=== PATIENT | male | born 1935 | race Caucasian/White ===

== ENCOUNTER 2017-06-03 12:00 | Emergency (ER) | payer MEDICARE, BC ==
[~2017-06-03] VITALS: Ht 177.8 cm; Wt 99.8 kg
[~2017-06-03 12:00] MED LIST: BACTRIM DS TAB1 EACH PO; CRESTOR40 MG; DICLOFENAC SOD100 MG; HYDROCHLOROTHIA25 MG; HYDROCODON-ACE1 EA10; JANUVIA100 MG; KEFLEX500 MG PO; LISINOPRIL40 MG; NORCO 5-325 TA1 EACH PO; TRAMADOL HCL50 MG; XARELTO20 MG
[2017-06-03] MEDS ORDERED: AMLODIPINE BESYL5 MG PO (12:15)
[2017-06-03] MEDS ORDERED: METOPROLOL SUCC50 MG PO (12:15)
[2017-06-03] MEDS ORDERED: BUPROPION XL300 MG PO (12:19)
[2017-06-03] MEDS ORDERED: GABAPENTIN300 MG PO (12:19)
[2017-06-03] MEDS ORDERED: JANUVIA50 MG PO (12:19)
[2017-06-03] MEDS ORDERED: RANITIDINE HCL150 MG PO (12:20)
--- OUTSIDE RECORDS SUMMARY | 2017-06-03 12:22 | XMS ---
Demographics + + + | Address | [address] | | | [place] [address] | + + + | Preferred Language | Unknown | + + + | Marital Status | Unknown | + + + | Nondenominational Affiliation | Unknown | + + + | Race | Unknown | + + + | Ethnic Group | Unknown | + + + Author + + + | Author | [facility] | + + + | Organization | [facility] | + + + | Address | [address] | | | [place] [address] | + + + | Phone | | + + + Care Team Providers + + + + | Care Baseball Inspector And Repairer Name | Role | Phone | + + + + Unavailable | Unavailable | + + + + PROBLEMS + + + + + + + + | Type | Condition | ICD9-CM | [id number] | Onset | Condition | SNOMED | | | | Code | Code | Dates | Status | Code | + + + + + + + + | Problem | Bilateral | H61.23 | | | Active | [id number] | | | impacted | | | | | | | | cerumen | | | | | | + + + + + + + + | Problem | Hypertensi | I11.9 | | | Active | 26398702 | | | ve | | | | | | | | arterioscl | | | | | | | | erotic | | | | | | | | cardiovasc | | | | | | | | ular | | | | | | | | disease | | | | | | + + + + + + + + | Problem | Skin | D49.2 | | | Active | | | | neoplasm | | | | | | + + + + + + + + | Problem | Dysthymia | F34.1 | | | Active | 56220064 | + + + + + + + + | 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 | | Active | 412682547 | | | hyperlipid | | | | | | | | emia | | | | | | + + + + + + + + | Problem | Gastroesop | K21.9 | | | Active | 582756328 | | | hageal | | | | | | | | reflux | | | | | | | | disease | | | | | | | | without | | | | | | | | esophagiti | | | | | | | | s | | | | | | + + + + + + + + | Problem | Osteoarthr | | M19.90 | | Active | 011509202 | | | itis | | | | | | + + + + + + + + | Problem | Paroxysmal | | I48.0 | | Active | 678015118 | | | atrial | | | | | | | | fibrillati | | | | | | | | on | | | | | | + + + + + + + + | Problem | TANK | G47.33 | | | Active | 51618305 | | | (obstructi | | | | | | | | ve sleep | | | | | | | | apnea) | | | | | | + + + + + + + + | Assessment | Stage 3 | N18.3 | | 05 August, | Active | 640365288 | | | chronic | | | 2017 | | | | | kidney | | | | | | | | disease | | | | | | + + + + + + + + | Assessment | Dysthymia | F34.1 | | 05 August, | Active | 53982491 | | | | | | 2016 | | | + + + + + + + + | Assessment | Irritation | H93.8X3 | | 18 July, | Active | | | | of ear, | | | 2017 | | | | | bilateral | | | | | | + + + + + + + + | 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 | | Active | 67634533 | | | rhinitis | | | | | | + + + + + + + + | Problem | DM | | E11.9 | | Active | 83786936 | | | (diabetes | | | | | | | | mellitus) | | | | | | + + + + + + + + | Problem | Chronic | | Z79.01 | | Active | 199419813 | | | anticoagul | | | | | | | | ation | | | | | | + + + + + + + + | Problem | Hypertensi | | I10 | | Active | 27149155 | | | on | | | | | | + + + + + + + + | Problem | Paroxysmal | I48.0 | | | Active | 35160745 | | | a-fib | | | | | | + + + + + + + + | Problem | Hyperchole | | E78.0 | | Active | 63225935 | | | sterolemia | | | | | | + + + + + + + + ALLERGIES + + + + +---------+ | Substance | Reaction | Event Type | Date | Status | + + + + +---------+ | N.K.D.A. | Unknown | Non Drug | July, | Unknown | | | | Allergy | | | + + + + +---------+ SOCIAL HISTORY No smoking Hx information available PLAN OF CARE VITAL SIGNS + + + + | Height | 70 in | 2016-08-05 | + + + + | Weight | 209.0 lbs | 2016-08-05 | + + + + | BMI | 29.99 kg/m2 | 2016-08-05 | + + + + | Temperature | 98.2 degrees Fahrenheit | 2016-08-05 | + + + + | Heart Rate | 50 /min | 2016-08-05 | + + + + | Blood pressure systolic | 164 mm Hg | 2016-08-05 | + + + + | Blood pressure diastolic | 77 mm Hg | 2016-08-05 | + + + + MEDICATIONS + + + + + + + +--------+ | Medicati | Instruct | Dosage | Frequenc | Start | End Date | Duration | Status | | on | ions | | y | Date | | | | + + + + + + + +--------+ | Ranitidi | Orally | 1 tablet | 12h | 14 Aditya, | | 30 | Active | | ne HCl | Twice a | | | 2016 | | day(s) | | | 150 MG | day | | | | | | | + + + + + + + +--------+ | Hydrochl | Orally | 1 tablet | 24h | | | | Active | | orothiaz | Once a | | | | | | | | nikita 25 | day | | | | | | | | MG | | | | | | | | + + + + + + + +--------+ | Lisinopr | Orally | 1 tablet | 24h | | | | Active | | il 40 MG | Once a | | | | | | | | | day | | | | | | | + + + + + + + +--------+ | Amlodipi | Orally | 1 tablet | 24h | 18 July, | | 30 | Active | | ne | Once a | | | 2017 | | day(s) | | | Besylate | day | | | | | | | | 5 MG | | | | | | | | + + + + + + + +--------+ | Ciprodex | Otic | 4 drops | 12h | 18 July, | | 5 days | Active | | 0.3-0.1 | Twice a | into | | 2016 | | | | | % | day | affected | | | | | | | | | ear | | | | | | + + + + + + + +--------+ | Wellbutr | Orally | 1 tablet | 24h | | | 30 | Active | | in XL | Once a | in the | | | | day(s) | | | 300 MG | day | morning | | | | | | + + + + + + + +--------+ | Crestor | Orally | 1 tablet | 24h | | | | Active | | 40 MG | Once a | | | | | | | | | day | | | | | | | + + + + + + + +--------+ | Januvia | Orally | 1 tablet | 24h | | | 90 days | Active | | 50 MG | Once a | | | | | | | | | day | | | | | | | + + + + + + + +--------+ | Diclofen | Orally | 1 tablet | 24h | | | | Active | | ac | Once a | | | | | | | | Sodium | day | | | | | | | | 100 MG | | | | | | | | + + + + + + + +--------+ | Wellbutr | Orally | 1 tablet | 24h | 20 Apr, | | 30 | Active | | in XL | Once a | in the | | 2017 | | day(s) | | | 150 MG | day | morning | | | | | | + + + + + + + +--------+ | Metoprol | Orally | 1 tablet | 24h | | | 30 | Active | | ol | Once a | | | | | day(s) | | | Succinat | day | | | | | | | | e ER 50 | | | | | | | | | MG | | | | | | | | + + + + + + + +--------+ | Xarelto | Oral | 1 tablet | 24h | | | | Active | | 20 MG | Once a | | | | | | | | | day | | | | | | | + + + + + + + +--------+ | Ciprodex | Otic | 4 drops | 12h | | | | Active | | 0.3-0.1 | Twice a | into | | | | | | | % | day | affected | | | | | | | | | ear | | | | | | + + + + + + + +--------+ RESULTS No Results PROCEDURES + + + + + | Procedure | Date Ordered | Related Diagnosis | Body Site | + + + + + | Office Visit, Est | August 05, 2016 | | | | Pt., Level 4 | | | | + + + + + IMMUNIZATIONS No Known Immunizations"
--- OUTSIDE RECORDS SUMMARY | 2017-06-03 12:22 | XMS ---
Demographics + + + | Address | [address] | | | [place] [address] | + + + | Preferred Language | Unknown | + + + | Marital Status | Unknown | + + + | Caodaism Affiliation | Unknown | + + + | Race | Unknown | + + + | Ethnic Group | Unknown | + + + Author + + + | Author | [facility] | + + + | Organization | [facility] | + + + | Address | [address] | | | [place] [address] | + + + | Phone | | + + + Care Team Providers + + + + | Care Poultry Offal Worker Name | Role | Phone | + + + + Unavailable | Unavailable | + + + + PROBLEMS +---------+ + + +--------+ + + | Type | Condition | ICD9-CM | [id number] | Onset | Condition | SNOMED | | | | Code | Code | Dates | Status | Code | +---------+ + + +--------+ + + | Problem | Bilateral | H61.23 | | | Active | 79495368 | | | impacted | | | | | | | | cerumen | | | | | | +---------+ + + +--------+ + + | Problem | Hypertensi | I11.9 | | | Active | 43504745 | | | ve | | | | | | | | arterioscl | | | | | | | | erotic | | | | | | | | cardiovasc | | | | | | | | ular | | | | | | | | disease | | | | | | +---------+ + + +--------+ + + | Problem | Skin | D49.2 | | | Active | | | | neoplasm | | | | | | +---------+ + + +--------+ + + | Problem | Dysthymia | F34.1 | | | Active | 96351055 | +---------+ + + +--------+ + + | 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 | | Active | 569662827 | | | hyperlipid | | | | | | | | emia | | | | | | +---------+ + + +--------+ + + | Problem | Gastroesop | K21.9 | | | Active | 738100594 | | | hageal | | | | | | | | reflux | | | | | | | | disease | | | | | | | | without | | | | | | | | esophagiti | | | | | | | | s | | | | | | +---------+ + + +--------+ + + | Problem | Osteoarthr | | M19.90 | | Active | 535487855 | | | itis | | | | | | +---------+ + + +--------+ + + | Problem | Paroxysmal | | I48.0 | | Active | 383174661 | | | atrial | | | | | | | | fibrillati | | | | | | | | on | | | | | | +---------+ + + +--------+ + + | Problem | TANK | G47.33 | | | Active | 81633011 | | | (obstructi | | | | | | | | ve sleep | | | | | | | | apnea) | | | | | | +---------+ + + +--------+ + + | 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 | | Active | 79906190 | | | rhinitis | | | | | | +---------+ + + +--------+ + + | Problem | DM | | E11.9 | | Active | 84047184 | | | (diabetes | | | | | | | | mellitus) | | | | | | +---------+ + + +--------+ + + | Problem | Chronic | | Z79.01 | | Active | 754681020 | | | anticoagul | | | | | | | | ation | | | | | | +---------+ + + +--------+ + + | Problem | Hypertensi | | I10 | | Active | 58647503 | | | on | | | | | | +---------+ + + +--------+ + + | Problem | Paroxysmal | I48.0 | | | Active | 78767824 | | | a-fib | | | | | | +---------+ + + +--------+ + + | Problem | Hyperchole | | E78.0 | | Active | 40516892 | | | sterolemia | | | | | | +---------+ + + +--------+ + + ALLERGIES Unknown Allergies SOCIAL HISTORY No smoking Hx information available PLAN OF CARE + +---------+ | Activity | Details | + +---------+ +---+ | | +---+ + + + | Pending Test | X ray : Sacroiliac Joint 3+views | + + + | Pending Test | X ray : Spine Lumbar Complete AP/L/O | + + + VITAL SIGNS MEDICATIONS Unknown Medications RESULTS No Results PROCEDURES No Known procedures IMMUNIZATIONS No Known Immunizations"
--- OUTSIDE RECORDS SUMMARY | 2017-06-03 12:22 | XMS ---
Demographics + + + | Address | [address] | | | [place] [address] | + + + | Preferred Language | Unknown | + + + | Marital Status | Unknown | + + + | Shinto Affiliation | Unknown | + + + | Race | Unknown | + + + | Ethnic Group | Unknown | + + + Author + + + | Author | [facility] | + + + | Organization | [facility] | + + + | Address | [address] | | | [place] [address] | + + + | Phone | | + + + Care Team Providers + + + + | Care Sourcing Associate Name | Role | Phone | + + + + Unavailable | Unavailable | + + + + PROBLEMS +---------+ + + +--------+ + + | Type | Condition | ICD9-CM | [id number] | Onset | Condition | SNOMED | | | | Code | Code | Dates | Status | Code | +---------+ + + +--------+ + + | Problem | Bilateral | H61.23 | | | Active | 12574685 | | | impacted | | | | | | | | cerumen | | | | | | +---------+ + + +--------+ + + | Problem | Hypertensi | I11.9 | | | Active | 42663344 | | | ve | | | [...] | F34.1 | | | Active | 77833655 | +---------+ + + +--------+ + + | 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 | | Active | 930005944 | | | hyperlipid | | | | | | | | emia | | | | | | +---------+ + + +--------+ + + | Problem | Gastroesop | K21.9 | | | Active | 343014588 | | | hageal | | | [...] | | M19.90 | | Active | 939613676 | | | itis | | | | | | +---------+ + + +--------+ + + | Problem | Paroxysmal | | I48.0 | | Active | 717521576 | | | atrial | | | | | | | | fibrillati | | | | | | | | on | | | | | | +---------+ + + +--------+ + + | Problem | TANK | G47.33 | | | Active | 96104178 | | | (obstructi | | | | | | | | ve sleep | | | | | | | | apnea) | | | | | | +---------+ + + +--------+ + + | 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 | | Active | 94711765 | | | rhinitis | | | | | | +---------+ + + +--------+ + + | Problem | DM | | E11.9 | | Active | 44163846 | | | (diabetes | | | | | | | | mellitus) | | | | | | +---------+ + + +--------+ + + | Problem | Chronic | | Z79.01 | | Active | 519023444 | | | anticoagul | | | | | | | | ation | | | | | | +---------+ + + +--------+ + + | Problem | Hypertensi | | I10 | | Active | 43608620 | | | on | | | | | | +---------+ + + +--------+ + + | Problem | Paroxysmal | I48.0 | | | Active | 72306243 | | | a-fib | | | | | | +---------+ + + +--------+ + + | Problem | Hyperchole | | E78.0 | | Active | 32622550 | | | sterolemia | | | | | | +---------+ + + +--------+ + + ALLERGIES + + + + +---------+ | Substance | Reaction | Event Type | Date | Status | + + + + +---------+ | Brendan. | Unknown | Non Drug | Aug, | Unknown | | | | Allergy | | | + + + + +---------+ SOCIAL HISTORY No smoking Hx information available PLAN OF CARE + +---------+ | Activity | Details | + +---------+ +---+ | | +---+ + + + | Follow Up | 4 Months Reason:null | + + + VITAL SIGNS + + + + | Height | 70 in | 2016-09-09 | + + + + | Weight | 209.2 lbs | 2016-09-09 | + + + + | BMI | 30.01 kg/m2 | 2016-09-09 | + + + + | Heart Rate | 50 /min | 2016-09-09 | + + + + | Blood pressure systolic | 151 mm Hg | 2016-09-09 | + + + + | Blood pressure diastolic | 66 mm Hg | 2016-09-09 | + + + + MEDICATIONS + [...] ne | Once a | | | | | day(s) | | | Besylate [...] + + | Office Visit, Est | September 09, 2016 | | | | Pt., Level 3 | | | | + + + + + IMMUNIZATIONS No Known Immunizations"
== END 2017-06-03 14:19 | disposition home or self-care (01) ==
LOC: ED 12:00
DX: I10 Essential (primary) hypertension (principal); F10.20 Alcohol dependence, uncomplicated; E86.0 Dehydration; E11.9 Type 2 diabetes mellitus without complications; F17.200 Nicotine dependence, unspecified, uncomplicated; Z79.899 Other long term (current) drug therapy; Y90.0 Blood alcohol level of less than 20 mg/100 ml
CPT/HCPCS: 70450; 80053; 81001; 85025; 99284; G0480; J7030

== ENCOUNTER 2018-06-02 11:55 | Emergency (ER) | payer MEDICARE, BC ==
[~2018-06-02] VITALS: Ht 177.8 cm; Wt 93.0 kg
--- OUTSIDE RECORDS SUMMARY | ~2018-06-02 | XMS | Clinical Summary ---
Demographics + + + | Address | [address] | | | [place] [address] | + + + | Home Phone | | + + + | Preferred Language | Unknown | + + + | Marital Status | | + + + | Zoroastrian Affiliation | Unknown | + + + | Race | Unknown | + + + | Ethnic Group | Unknown | + + + Author + + + | Author | [facility] | | | and [place] | + + + | Organization | [facility] | | | and [place] | + + + | Address | Unknown | + + + | Phone | Unavailable | + + + Support + + +---------+ + | Name | Relationship | Address | Phone | + + +---------+ + | AMANDA SANCHEZ ECON | Unknown | | + + +---------+ + Care Team Providers + +------+ + | Care Hr Operations Advisor Name | Role | Phone | + +------+ + PP | Unavailable | + +------+ + Allergies Not on File Current Medications Not on file Active Problems Not on file Social History + +-------+ +--------+------+ | Tobacco Use | Types | Packs/Day | Years | Date | | | | | Used | | + +-------+ +--------+------+ | Never Assessed | | | | | + +-------+ +--------+------+ + + + | Sex Assigned at | Date Recorded | | | | + + + | Not on file | | + + + Plan of Treatment + [...] Vaccine: Influenza | | | | | (#1) | 8 | | | + + + + + Results Not on filefrom Last 3 Months"
--- OUTSIDE RECORDS SUMMARY | ~2018-06-02 | XMS | Clinical Summary ---
Demographics + + + | Address | [address] | | | [place] [address] | + + + | Home Phone | | + + + | Preferred Language | Unknown | + + + | Marital Status | | + + + | Sabianism Affiliation | Unknown | + + + | Race | Unknown | + + + | Ethnic Group | Unknown | + + + Author + + + | Author | [facility] [place] | | | and [place] | + + + | Organization | [facility] | | | and [place] | [...] Team Providers + +------+ + | Care Ob Gyn Name | Role | Phone | + [...]
[~2018-06-02 11:55] MED LIST changes: +AMLODIPINE BESYL5 MG PO; +BUPROPION XL300 MG PO; +GABAPENTIN300 MG PO; +JANUVIA50 MG PO; +METOPROLOL SUCC50 MG PO; +RANITIDINE HCL150 MG PO
== END 2018-06-02 12:25 | disposition home or self-care (01) ==
LOC: ED 11:55
DX: M25.552 Pain in left hip (principal)

== ENCOUNTER 2019-07-29 10:45 | Emergency (ER) | payer MEDICARE, BC ==
[~2019-07-29] VITALS: Ht 177.8 cm; Wt 90.7 kg
--- OUTSIDE RECORDS SUMMARY | ~2019-07-29 | XMS | Clinical Summary ---
Demographics + + + | Address | [address] | | | [place] [address] | + + + | Home Phone | | + + + | Preferred Language | Unknown | + + + | Marital Status | Unknown | + + + | Worship Affiliation | Unknown | + + + | Race | Unknown | + + + | Ethnic Group | Unknown | + + + Author + + + | Author | [facility] (Historical as of | | | 11-04-18) | + + + | Organization | [facility] (Historical as of | | | 11-04-18) | + + + | Address | Unknown | + + + | Phone | Unavailable | + + + Support + + +---------+ + | Name | Relationship | Address | Phone | + + +---------+ + | Gris Leon | ECON | Unknown | | + + +---------+ + Care Team Providers + +------+ + | Care A R Specialist Name | Role | Phone | + +------+ + | Sg Parikh DO | PP | | + +------+ + Allergies No Known Allergies Current Medications + + +-------+---------+------+------+-------+ | Prescription | Sig. | Disp. | Refills | Star | End | Statu | | | | | | t | Date | s | | | | | | Date | | | + + +-------+---------+------+------+-------+ | celecoxib | | | 0 | 06/2 | | Activ | | (CELEBREX) 100 MG | | | | 1/20 | | e | | capsule | | | | 19 | | | + + +-------+---------+------+------+-------+ | JANUVIA 50 MG | TK 1 T PO QD | | 3 | 06/2 | | Activ | | tablet | | | | 20 | | e | | | | | | 19 | | | + + +-------+---------+------+------+-------+ | metoprolol | | | 1 | 04/2 | | Activ | | (TOPROL-XL) 50 MG 24 | | | | 0/20 | | e | | hr tablet | | | | 19 | | | + + +-------+---------+------+------+-------+ | ranitidine | | | 1 | 06/0 | | Activ | | (ZANTAC) 150 MG | | | | /20 | | e | | tablet | | | | 19 | | | + + +-------+---------+------+------+-------+ | rosuvastatin | | | 0 | 04/2 | | Activ | | (CRESTOR) 40 MG | | | | 0/20 | | e | | tablet | | | | 19 | | | + + +-------+---------+------+------+-------+ | buPROPion | | | 1 | 06/0 | | Activ | | (WELLBUTRIN XL) 300 | | | | 8/20 | | e | | MG 24 hr tablet | | | | 19 | | | + + +-------+---------+------+------+-------+ | amLODIPine | Take 5 mg by mouth | | | | | Activ | | (NORVASC) 5 MG | daily. | | | | | e | | tablet | | | | | | | + + +-------+---------+------+------+-------+ | lisinopril | Take 40 mg by mouth | | | | | Activ | | (ZESTRIL) 40 MG | daily. | | | | | e | | tablet | | | | | | | + + +-------+---------+------+------+-------+ | rivaroxaban | Take 10 mg by mouth | | | | | Activ | | (XARELTO) 10 mg | daily. | | | | | e | | tablet | | | | | | | + + +-------+---------+------+------+-------+ Active Problems + + + | Problem | Noted Date | + + + | CKD (chronic kidney disease), stage II | 09/18/2018 | + + + | Essential (primary) hypertension | 09/18/2018 | + + + | Type 2 diabetes mellitus with diabetic nephropathy, without | 09/18/2018 | | long-term current use of insulin (HCC) | | + + + | Electrolyte imbalance risk | 09/18/2018 | + + + Family History + + +------+ + | Medical History | Relation | Name | Comments | + + +------+ + | Heart Problems | Father | | | + + +------+ + | Arthritis | Mother | | | + + +------+ + + +------+--------+ + | Relation | Name | Status | Comments | + +------+--------+ + | Father | | | | + +------+--------+ + | Mother | | | | + +------+--------+ + Social History + +--------+ +--------+------+ | Tobacco Use | Types | Packs/Day | Years | Date | | | | | Used | | + +--------+ +--------+------+ | Current Every Day | Cigars | | | | | Smoker | | | | | + +--------+ +--------+------+ + +---+---+---+ | Smokeless Tobacco: | | | | | Never Used | | | | + +---+---+---+ + + +---------+ + | Alcohol Use | Drinks/We | oz/Week | Comments | | | ek | | | + + +---------+ + | Yes | | | 30 | + + +---------+ + + + + | Sex Assigned at | Date Recorded | | | | + + + | Not on file | | + + + Last Filed Vital Signs + + + + | Vital Sign | Reading | Time Taken | + + + + | Blood Pressure | 124/70 | 11/02/2018 1:08 PM PDT | + + + + | Pulse | 85 | 11/02/2018 1:08 PM PDT | + + + + | Temperature | - | - | + + + + | Respiratory Rate | - | - | + + + + | Oxygen Saturation | 95% | 11/02/2018 1:08 PM PDT | + + + + | Inhaled Oxygen | - | - | | Concentration | | | + + + + | Weight | 92.5 kg (204 lb) | 11/02/2018 1:08 PM PDT | + + + + | Height | 177.8 cm (5' 10") | 11/02/2018 1:08 PM PDT | + + + + | Body Mass Index | 29.27 | 11/02/2018 1:08 PM PDT | + + + + Plan of Treatment + + + + + | Health Maintenance | Due Date | Last Done | Comments | + + + + + | Diabetic Eye Exam | | | | | | 5 | | | + + + + + | Diabetic Foot Exam | | | | | | 5 | | | + + + + + | Vaccine: | | | | | Dtap/Tdap/Td (1 - | 4 | | | | Tdap) | | | | + + + + + | Vaccine: Zoster (1 | | | | | of 2) | 5 | | | + + + + + | Vaccine: | | | | | Pneumococcal 65+ | 0 | | | | Low/Medium Risk (1 | | | | | of 2 - PCV13) | | | | + + + + + | Hemoglobin A1c | | 06/13/2018 | | | | 9 | | | + + + + + | Vaccine: Influenza | | | | | (Season Ended) | 0 | | | + + + + + Results Not on filefrom Last 3 Months Insurance + +--------+ +------+-------+ + | Payer | Benefi | Subscriber | Type | Phone | Address | | | t Plan | ID | | | | | | / | | | | | | | Group | | | | | + +--------+ +------+-------+ + | MEDICARE | MEDICA | [id number] | | | [address] | | | RE | | | | [place] [address] | | | IP-OP | | | | | + +--------+ +------+-------+ + | PREMERA | PREMER | [id number] | | | [address] [address] | | | [place] BL[place] | | | | [place], [place] | | | [place] | | | | [address] | | | FED | | | | | | | PPO | | | | | + +--------+ +------+-------+ + + +--------+ +--------+ + + | Guarantor Name | Accoun | Relation to | Date | Phone | Billing Address | | | t Type | Patient | of | | | | | | | | | | + +--------+ +--------+ + + | ECTOR SANCHEZ | Person | Self [birth year] Home: | [address] | | [address] | | [phone] | [phone] [place] | | | [address] | | | [phone] | [phone] | + +--------+ +--------+ + +
--- OUTSIDE RECORDS SUMMARY | ~2019-07-29 | XMS | Clinical Summary ---
Demographics + + + | Address | [address] | | | [place] [address] | + + + | Home Phone | | + + + | Preferred Language | Unknown | + + + | Marital Status | Unknown | + + + | Jehovah'S Witness Affiliation | Unknown | + + + | Race | Unknown | + + + | Ethnic Group | Unknown | + + + Author + + + | Author | [facility] (Historical as of | | | 11-04-18) | + + + | Organization | [facility] (Historical as of | | | 11-04-18) [...] Team Providers + +------+ + | Care Eligibility Manager Name | Role | Phone | + [...] +------+-------+ + | MEDICARE | MEDICA | [id number] | | | [address] | | | RE | | | | [place] [address] | | | IP-OP | | | | | + +--------+ +------+-------+ + | PREMERA | PREMER | [id number] | | | [address] [address] | | | A BLUE | | | | [place], [place] | | | [place] | | | | [address] | | | FED | | | [...] | [address] | | | [address] | [phone] | + +--------+ +--------+ + +
[~2019-07-29 10:45] MED LIST changes: +CELECOXIB100 MG PO
--- NOTE | 2019-07-30 16:43 | EKG ---
[facility] [address] [facility] [place] [address] Signed Normal sinus rhythm Possible Inferior infarct , age undetermined Abnormal ECG Confirmed by JESE VIDALES MD ([id number]) on 07/30/2019 4:43:34 PM Electronically Signed By: JESE VIDALES MD 07/30/19 1643 PATIENT NAME: REBECCA SANCHEZ Electrocardiogram DATE OF : 33 PHYSICIAN: JESE VIDALES MD REPORT #: [id number] REPORT IS CONFIDENTIAL AND NOT TO BE RELEASED WITHOUT AUTHORIZATION
== END 2019-07-29 15:18 | disposition home or self-care (01) ==
LOC: ED 10:45
DX: R53.1 Weakness (principal); R50.9 Fever, unspecified; I10 Essential (primary) hypertension; E11.9 Type 2 diabetes mellitus without complications; I48.91 Unspecified atrial fibrillation; Z79.899 Other long term (current) drug therapy
CPT/HCPCS: 71045; 80053; 81001; 83735; 84484; 85025; 93005; 93010; 96360; 99285-25; J7030; U0002

== ENCOUNTER 2019-08-24 08:11 | Emergency (ER) | payer MEDICARE, BC ==
[~2019-08-24] VITALS: Ht 177.8 cm; Wt 90.7 kg
--- OUTSIDE RECORDS SUMMARY | 2019-08-24 08:12 | XMS ---
PreMan[facility] Notification: REBECCA SANCHEZ Security Information Scientist Events No recent Security Events currently on file CRITERIA MET - [facility] - 2 Visits in 30 Days CARE PROVIDERS There are no care providers on record at this time. Jenny has no Care Guidelines for this patient. [facility] V[facility] (12 MO.) [facility] NOTE: Visits indicate total known visits. ED/C VISIT TRACKING (12 MO.) [facility] COMPLAINT: - WITHDRAWAL, WEAKNESS, ALTERED LOC 07/29/2019 10:[address] [facility] [place] TYPE: Emergency COMPLAINT: - FEVER, FALL DIAGNOSES: - Weakness - Essential (primary) hypertension - Unspecified atrial fibrillation - Other terminal manager (current) drug therapy - Type 2 diabetes mellitus without complications - Fever, unspecified INPATIENT VISIT TRACKING (12 MO.) No inpatient visits to display in this time frame [email or web address]
[2019-08-24] MEDS ORDERED: CHLORDIAZEPOXID10 MG PO (08:31)
[2019-08-24] MEDS ORDERED: ALLOPURINOL300 MG PO (08:31)
[2019-08-24] MEDS ORDERED: ESCITALOPRAM OX10 MG PO (08:33)
--- NOTE | 2019-08-25 06:56 | EKG ---
[facility] [address] [facility] [place] [address] Signed Normal sinus rhythm Normal ECG When compared with ECG of 29-JUL-2019 11:11, Inverted T waves have replaced nonspecific T wave abnormality in Inferior leads Confirmed by CHERRY MARTINEZ MD [id number] on 08/25/2019 6:56:44 AM Electronically Signed By: CHERRY MARTINEZ MD 08/25/19 0656 PATIENT NAME: REBECCA SANCHEZ Electrocardiogram DATE OF : 33 PHYSICIAN: CHERRY MARTINEZ MD REPORT #: [id number] REPORT IS CONFIDENTIAL AND NOT TO BE RELEASED WITHOUT AUTHORIZATION
== END 2019-08-24 13:25 | disposition home or self-care (01) ==
LOC: ED 08:11
DX: R53.1 Weakness (principal); I10 Essential (primary) hypertension; E11.9 Type 2 diabetes mellitus without complications; I48.91 Unspecified atrial fibrillation; F17.200 Nicotine dependence, unspecified, uncomplicated; Z79.899 Other long term (current) drug therapy
CPT/HCPCS: 80053; 81001; 82550; 83735; 85025; 85610; 93005; 93010; 99285-25

== ENCOUNTER 2020-02-09 16:45 | Emergency (ER) | payer MEDICARE, BC ==
[~2020-02-09] VITALS: Ht 177.8 cm; Wt 65.8 kg
[~2020-02-09 16:45] MED LIST changes: +ALLOPURINOL300 MG PO; +CHLORDIAZEPOXID10 MG PO; +ESCITALOPRAM OX10 MG PO
== END 2020-02-09 21:02 | disposition home or self-care (01) ==
LOC: ED 16:45
DX: I95.9 Hypotension, unspecified (principal); M25.562 Pain in left knee; R63.4 Abnormal weight loss; E11.9 Type 2 diabetes mellitus without complications; I48.91 Unspecified atrial fibrillation; I10 Essential (primary) hypertension; F17.200 Nicotine dependence, unspecified, uncomplicated; Z79.899 Other long term (current) drug therapy
CPT/HCPCS: 71046; 73560; 74177; 80053; 81001; 83690; 85025; 99284-25; J7040; Q9967

== ENCOUNTER 2020-04-18 07:50 | Day surgery (SDC) | payer MEDICARE, BC ==
[~2020-04-18] VITALS: Ht 177.8 cm; Wt 62.7 kg
[~2020-04-18 07:50] MED LIST changes: +COLCHICINE0.6 M1 PO; +INTRINSI B12-F1 EACH PO; +MEMANTINE HCL5 MG PO; +METAMUCIL0.52 GM PO; +SM NATURAL BAL100 MG PO
--- NOTE | 2020-04-18 11:09 | NUR ---
04/18/20 1109 Isabella Kraus 1104: PT ARRIVEST PACU WITH ORAL AIRWAY IN PLACE. NONRESPONSIVE TO PHYSICAL/VERBAL STIMULUS.
--- NOTE | 2020-04-18 14:07 | OR ---
[facility] [address], [place] [address] Signed DATE OF OPERATION: 04/18/2020 SURGEON: Thomas Parsons MD PREOPERATIVE DIAGNOSES: 1. Anorexia. 2. Weight loss. 3. Daily alcohol use. 4. Daily tobacco use. 5. Diverticulosis. 6. Two sisters with colon cancer in her 70s. 7. Daughter with colonic polyps starting at age 50. POSTOPERATIVE DIAGNOSES: 1. Moderate gastroduodenitis. 2. Small antral gastric ulcer. 3. 5-8 mm polyps at proximal right colon, mid right colon, distal right colon, 110 cm, 85 cm, 40 cm and 22 cm. 4. Moderate sigmoid diverticulosis. 5. Moderate internal hemorrhoids. PROCEDURES: 1. EGD with CLOtest and biopsies of the pyloric bulb and antrum. 2. Colonoscopy with snare polypectomy and hot biopsy. ESTIMATED BLOOD LOSS: None. INDICATIONS: Rebecca is an 84-year-old gentleman asked to see me for upper and lower endoscopy. He is now living at [facility] with his . His was ill earlier this year and in the hospital. He decided he had no appetite and has been eating almost nothing whatsoever since then. He is down [address] scan of the abdomen and pelvis showed diverticulosis. He went to see his urologist for bilateral renal cysts and hematuria. That came out negative. It sounds that some of the pills get stuck to the top of his mouth rather than having true esophageal dysphagia. He said he likes to smoke a cigar every day. He likes to have bourbon every day for lunch and in the evenings before he goes to bed. He said he has had several colonoscopies throughout his life. To his knowledge, they have all been negative. He thinks maybe his last colonoscopy was in 2005. He knows both sisters had colon cancer in her 70s. His daughter, who is with him Electronically Signed By: THOMAS PARSONS MD 04/18/20 1407 PATIENT NAME: REBECCA SANCHEZ OPERATIVE REPORT DATE OF : 33 REPORT #: [id number] PHYSICIAN: THOMAS PARSONS MD PCP: SINAN BARAKAT MD REPORT IS CONFIDENTIAL AND NOT TO BE RELEASED WITHOUT AUTHORIZATION [address] [address] Signed today, said she had multiple colonic polyps removed starting at age 49. Rebecca does not seem to have any specific upper or lower GI complaints. I gave Rebecca and his daughter a pamphlet on upper and lower endoscopy. We looked at that together in detail. They understand the nature of the test along with the risks including, but not limited to gas bloating, crampy abdominal pain, bleeding, perforation requiring surgery, and missed diagnosis. He is at greater risk for perforation given his age and the fact he has not been eating much and he is losing weight and his bowel wall can be thin. Also because of his advanced age, medical history and daily use of alcohol, we asked an anesthesia provider to help us with increased monitoring and sedation with propofol. They had expressed understanding and wished to proceed. PROCEDURE NOTE: Rebecca was taken into our OR area and placed in the supine position. He was given monitored anesthesia care per nurse extrusion die coordinator. A bite block was utilized for the case. The adult gastroscope was introduced and advanced under direct visualization of camera. The duodenum was unremarkable. The pyloric bulb and stomach showed moderate patchy erythematous changes consistent with gastric duodenitis. He had a small gastric ulcer in the antrum. It was not bleeding. We took biopsies of the pyloric bulb in the antrum for pathologic review. In addition, biopsy came out of the antrum for CLOtest. Upon retroflexion of scope, we did not see a specific hiatal hernia. The scope was withdrawn up to the area of GE junction, which was compliant without stricture. He had mild to moderate disruption to the Z-line. There was no Elliott's mucosa. He had what may or may not be a small esophageal varices. Consequently, we chose not to take a biopsy at Z-line. However, there was no esophagitis in the distal middle and upper esophagus. After this, the gas was suctioned out and the gastroscope removed. Rebecca tolerated procedure quite well. Unfortunately our computer went down in our operating room area. We therefore had to transfer Rebecca down the hallway about computer in our endoscopy suite. He was then placed in the left lateral decubitus position with appropriate padding and monitoring. He was maintained on monitored anesthesia care per our nurse extrusion die coordinator. A digital rectal exam was performed and this was unremarkable. The adult colonoscope was introduced and advanced all around into the cecum under direct visualization of camera. It took a little extra sedation and abdominal compression in order to advance the scope. His prep was good. We could easily see the appendiceal orifice and ileocecal valve. The scope was slowly withdrawn. The above-mentioned polyps were removed closely with the snare and also with the help of hot biopsy forceps. He does have moderate diverticula in the sigmoid colon. They were moderate in size, moderate in number, and scattered about. Down in the rectum, no specific polyps. We did retroflex the scope and he has moderate internal hemorrhoid columns. After this, the gas was suctioned out and colonoscope removed. Rebecca tolerated the procedure quite well. Electronically Signed By: THOMAS PARSONS MD 04/18/20 1407 PATIENT NAME: REBECCA SANCHEZ OPERATIVE REPORT DATE OF : 33 REPORT #: [id number] PHYSICIAN: THOMAS PARSONS MD PCP: SINAN BARAKAT MD REPORT IS CONFIDENTIAL AND NOT TO BE RELEASED WITHOUT AUTHORIZATION [address] [place], [place] [address] Signed RECOMMENDATIONS: I will see Rebecca back in my office in 7 to 14 days. MD FELICIA Rodriguez/LOWELL /[id number] cc: MD Sinan Rodriguez MD Copies: THOMAS PARSONS MD, ROBERT D DMD ~ Electronically Signed By: THOMAS PARSONS MD 04/18/20 1407 PATIENT NAME: REBECCA SANCHEZ OPERATIVE REPORT DATE OF : 33 REPORT #: [id number] PHYSICIAN: THOMAS PARSONS MD PCP: SINAN BARAKAT MD REPORT IS CONFIDENTIAL AND NOT TO BE RELEASED WITHOUT AUTHORIZATION
--- NOTE | 2020-04-24 11:23 | PATH ---
[facility] [address], [place] [address] Signed SPECIMEN(S): A PYLORIC BULB SPECIMEN(S): B ANTRUM SPECIMEN(S): C COLON POLYP 22 CM SPECIMEN(S): D COLON POLYP 85 CM SPECIMEN(S): E COLON POLYP 110 CM SPECIMEN(S): F MID ASCENDING POLYP SPECIMEN(S): G PROXIMAL ASCENDING POLYP SPECIMEN(S): H DISTAL ASCENDING POLYP SPECIMEN(S): I COLON POLYP 40 CM SPECIMEN SOURCE: A. PYLORIC BULB B. ANTRUM C. COLON POLYP 22 CM D. COLON POLYP 85 CM E. COLON POLYP 110 CM F. MID ASCENDING POLYP G. PROXIMAL ASCENDING POLYP H. DISTAL ASCENDING POLYP I. COLON POLYP 40 CM CLINICAL HISTORY: Esophagogastroduodenoscopy, colonoscopy with mac. Preop: Dysphagia, weight loss, family history of polyps, colon CA. Postop: Gastroduodenitis, gastric ulcer, diverticulosis, internal hemorrhoids, polyps. MICROSCOPIC DESCRIPTION: Histologic sections of all submitted blocks are examined by light microscopy. These findings, together with the gross examination, support the pathologic diagnosis. B. A Helicobacter pylori immunostain is performed on (B1) with appropriate positive and negative controls and is negative for organisms. JVR:[facility] FINAL PATHOLOGIC DIAGNOSIS: A. Pylori bulb: - Benign small bowel-type mucosa, negative for specific diagnostic abnormality. B. Antrum, biopsy: - Antral-type mucosa with mild chronic gastritis. - A Helicobacter pylori immunostain is negative for organisms. PATIENT NAME: REBECCA SANCHEZ PATHOLOGY DATE OF : 33 REPORT #: [id number] PHYSICIAN: GISELA STARR PCP: SINAN BARAKAT MD REPORT IS CONFIDENTIAL AND NOT TO BE RELEASED WITHOUT AUTHORIZATION [facility] [address], [place] [address] Signed C. Colon polyp at 22 cm: - Hyperplastic polyp (one fragment). D. Colon polyp at 85 cm: - Negative for significant mucosal elements. (Cell block attempted and negative) E. Colon polyp at 110 cm: - Tubular adenoma (two fragments). F. Mid ascending polyp: - Tubular adenoma (multiple fragments). G. Proximal ascending polyp: - Tubular adenoma (multiple fragments). H. Distal ascending polyp: - Tubular adenoma (three fragments). I. Colon polyp at 40 cm: - Tubular adenoma (two fragments). JVR:[facility]:C2NR GROSS DESCRIPTION: Nine specimens are received in nine containers, labeled "DO." A. The specimen, labeled "DO, pyloric bulb," is received in formalin and consists of one dominique soft tissue fragment that measures 0.2 cm in greatest dimension. The specimen is entirely submitted in cassette (A1). B. The specimen, labeled "DO, antrum biopsy," is received in formalin and consists of one dominique soft tissue fragment that measures 0.2 cm in greatest dimension. The specimen is entirely submitted in cassette (B1). C. The specimen, labeled "DO, colon polyp at 22 cm," is received in formalin and consists of one dominique soft tissue fragment that measures 0.3 cm in greatest dimension. The specimen is entirely submitted in cassette (C1). D. The specimen, labeled "DO, colon polyp at 85 cm," is received in formalin. Tissue cannot be grossly identified within the container. Specimen will be sent to cytology for processing. E. The specimen, labeled "DO, colon polyp at 110 cm," is received in formalin and consists of two dominqiue soft tissue fragments that measure 0.2-0.6 cm in greatest dimension. The bigger tissue fragment is inked and bisected. The specimen is entirely submitted in cassette (E1). F. The specimen, labeled "DO, mid ascending colon polyp," is received in formalin and consists of multiple dominique soft tissue fragments that measure 1.0 x 1.0 x 0.2 cm in aggregate. The specimen is PATIENT NAME: REBECCA SANCHEZ PATHOLOGY DATE OF : 33 REPORT #: [id number] PHYSICIAN: GISELA STARR PCP: SINAN BARAKAT MD REPORT IS CONFIDENTIAL AND NOT TO BE RELEASED WITHOUT AUTHORIZATION [facility] [address], [place] [address] Signed entirely submitted in cassette (F1). G. The specimen, labeled "DO, proximal ascending colon polyp," is received in formalin and consists of six dominique soft tissue fragments that measure 0.1-0.2 cm in greatest dimension. The specimen is entirely submitted in cassette (G1). H. The specimen, labeled "DO, distal ascending colon polyp," is received in formalin and consists of three dominique soft tissue fragments that measure 0.2 cm in greatest dimension. The specimen is entirely submitted in cassette (H1). I. The specimen, labeled "DO, colon polyp at 40 cm," is received in formalin and consists of two dominique soft tissue fragments that measure 0.3-0.7 cm in greatest dimension. The biggest tissue fragment is inked and bisected. The specimen is entirely submitted in cassette (I1). JS (under the direct supervision of a pathologist) The Gross Description was prepared using a voice recognition system. The report was reviewed for accuracy; however, sound-alike word errors, addition and/or deletions may occur. If there is any question about this report, please contact Client Services. ADDITIONAL NOTES: Immunohistochemical and/or in situ hybridization studies were performed on this case with the appropriate positive controls that react as expected. This test was developed and its performance characteristics determined by [facility]. It has not been cleared or approved by the U.S. Food and Drug Administration. The FDA has determined that such clearance or approval is not necessary. This test is used for clinical purposes. It should not be regarded as investigational or for research. [facility] is certified under the Clinical Laboratory Improvement Amendments of 1988 (CLIA) as qualified to perform high complexity clinical laboratory testing. PERFORMING LABORATORY: The technical component was performed by [facility], [address] [place] [address] (Java Programmer Analyst: Norma Huffman MD; CLIA# [id number]). Professional interpretation was performed by [facility], [place] [address]. Diagnostician: Az Kelly MD Pathologist PATIENT NAME: REBECCA SANCHEZ PATHOLOGY DATE OF : 33 REPORT #: [id number] PHYSICIAN: GISELA PATHOLOGY PCP: SINAN BARAKAT MD REPORT IS CONFIDENTIAL AND NOT TO BE RELEASED WITHOUT AUTHORIZATION [address] [place], [place] [address] Signed Electronically Signed 04/24/2020 Copies: ~ PATIENT NAME: REBECCA SANCHEZ PATHOLOGY DATE OF : 33 REPORT #: [id number] PHYSICIAN: GISELA PATHOLOGY PCP: SINAN BARAKAT MD REPORT IS CONFIDENTIAL AND NOT TO BE RELEASED WITHOUT AUTHORIZATION
== END 2020-04-18 11:45 | disposition home or self-care (01) ==
LOC: OPS 07:50 → DS 07:50 → OPS 08:15
PROVIDERS: ATTEND Colon & Rectal Surgery
PROC: 0DBH8ZX Excision of Cecum, Via Natural or Artificial Opening Endoscopic, Diagnostic (ICD-10-PCS; 2020-04-18)
PROC: 0DB78ZX Excision of Stomach, Pylorus, Via Natural or Artificial Opening Endoscopic, Diagnostic (ICD-10-PCS; principal; 2020-04-18 08:15)
PROC: 0DBH8ZX Excision of Cecum, Via Natural or Artificial Opening Endoscopic, Diagnostic (ICD-10-PCS; 2020-04-18 08:15)
DX: D13.1 Benign neoplasm of stomach (principal); D12.2 Benign neoplasm of ascending colon; K29.50 Unspecified chronic gastritis without bleeding; K29.90 Gastroduodenitis, unspecified, without bleeding; K57.30 Diverticulosis of large intestine without perforation or abscess without bleeding; K64.8 Other hemorrhoids; R63.4 Abnormal weight loss; R63.0 Anorexia; G47.33 Obstructive sleep apnea (adult) (pediatric); I12.9 Hypertensive chronic kidney disease with stage 1 through stage 4 chronic kidney disease, or unspecified chronic kidney disease; E11.22 Type 2 diabetes mellitus with diabetic chronic kidney disease; N18.9 Chronic kidney disease, unspecified; I48.0 Paroxysmal atrial fibrillation; F17.210 Nicotine dependence, cigarettes, uncomplicated; Z79.01 Long term (current) use of anticoagulants; Z91.19 Patient's noncompliance with other medical treatment and regimen; Z83.71 Family history of colonic polyps; Z80.0 Family history of malignant neoplasm of digestive organs; Z72.89 Other problems related to lifestyle; Z68.21 Body mass index [BMI] 21.0-21.9, adult
CPT/HCPCS: 86677; 88305; J2704; J7121

== ENCOUNTER 2020-05-20 15:57 | Inpatient (IN) | payer MEDICARE, BC ==
[~2020-05-20] VITALS: Ht 177.8 cm; Wt 65.0 kg
[~2020-05-20 15:57] MED LIST changes: +CRESTOR20 MG PO; -CRESTOR40 MG; -XARELTO20 MG; +XARELTO20 MG PO
[2020-05-20] MEDS ORDERED: MEGESTROL400 MG/10 PO (16:18)
[2020-05-20] MEDS ORDERED: FOLIC ACID0.4 MG PO (16:18)
[2020-05-20] MEDS ORDERED: PRILOSEC OTC20 MG PO (16:20)
--- NOTE | 2020-05-20 20:30 | NUR ---
PATIENT ARRIVED TO THE FLOOR VIA STRETCHER. PATIENT ASSISTED TO HOSPITAL BED FROM STRETCHER BY STAFF. PATIENTS ATTEND CHANGED. PATIENTS ADMISSION COMPLETED. PATIENT PROVIDED WITH WATER. URINAL PLACED BY PATIENTS BED. PATIENT HAS MULTIPLE BRUISE SEE ASSESMENT FOR DETAILS. ALLEVYN PLACED ON PATIENTS RIGHT ELBOW X2 FOR CUTS. PATIENT IS CONFUSED AT TIMES AND THINKS HE IS HAVING A PROCEDURE DONE. EDUCATED PATIENT ON REASON FOR HOSPITAL STAY. PATIENTS BED ALARM PLACED ON FOR SAFETY. ASSESEMENT COMPLETED. IV INFUSING PER ORDER. CALL LIGHT IN REACH.
--- NOTE | 2020-05-20 22:03 | EKG ---
[facility] [address], [place] [address] Signed Normal sinus rhythm Normal ECG When compared with ECG of 15-APR-2020 10:47, No significant change was found Confirmed by CHERRY MARTINEZ MD ([id number]) on 05/20/2020 10:03:18 PM Electronically Signed By: CHERRY MARTINEZ MD 05/20/202202 PATIENT NAME: SANCHEZREBECCA Electrocardiogram DATE OF : 33 PHYSICIAN: CHERRY MARTINEZ MD REPORT #: [id number] REPORT IS CONFIDENTIAL AND NOT TO BE RELEASED WITHOUT AUTHORIZATION
--- NOTE | 2020-05-20 22:03 | NUR ---
PATIENT WAS HOLLERING OUT. PATIENT ASSISTED WITH THE URINAL. PATIENT APPEARS UPSET AND IS CALLING STAFF "FUCKERS". EDUCATED PATIENT ON APPROPRIATE LANGUAGE. PATIENT CONTINUES TO THINK HE IS HAVING A PROCEDURE DONE. EDUCATED PATIENT ON WHY HE IS IN THE HOSPITAL. PROVIDED PATIENT WITH FRESH WATER. PATIENT HAS CALMED AFTER USING THE URNAL AND HAVING A DRINK OF WATER. NO FURTHER NEEDS NOTED. CALL LIGHT IN REACH. ALARM ON FOR SAFETY.
[2020-05-20] MEDS ORDERED: ESCITALOPRAM OX10 MG PO (23:10)
--- NOTE | 2020-05-20 23:41 | NUR ---
PATIENTS ATTEND CHANGED. PATIENT REQUESTED TYLENOL STATING "MY BRUISE HURTS" HE POINTS TO HIS RIGHT HIP. PATIENT GIVEN PRN TYLENOL PER ORDER. PATIENT REPOSTIONED IN BED. NO FURTHER NEEDS NOTED. CALL LIGHT IN REACH.
--- NOTE | 2020-05-21 01:55 | NUR ---
PATIENTS VITALS TAKEN AND RECORDED. PATIENTS INTAKE AND OUPUT RECORDED. PATIENT REPOSITIONED IN BED. PATIENT PROVIDED WITH SANDWICH BOX PER REQUEST. NO FURTHER NEEDS NOTED. CALL LIGHT IN REACH. BED ALARM ON FOR SAFETY.
--- NOTE | 2020-05-21 03:25 | NUR ---
PATIENT IS SITTING UP IN BED WATCHING TV AND EATING A SANDWICH. PATIENT DENIES ANY FURTHER NEEDS. CALL LIGHT IN REACH. ALARM ON FOR SAFETY
--- NOTE | 2020-05-21 04:46 | NUR ---
PATIENT IS RESTING IN BED WATCHING TV. PATIENT DENIES ANY NEEDS. CALL LIGHT IN REACH. ALARM ON FOR SAFETY.
--- NOTE | 2020-05-21 05:27 | NUR ---
PATIENTS VITALS TAKEN AND RECORDED. PATIENTS INTAKE AND OUPUT RECORDED. ATTEND CHANGED. PATIENT REPOSITIONED IN BED AND HOSPITAL GOWN PLACED BACK ON PATIENT. PATIENT DENIES ANY PAIN. NO NEEDS NOTED. CALL LIGHT IN REACH. BED ALARM ON FOR SAFETY.
--- NOTE | 2020-05-21 05:31 | NUR ---
PATIENT RESTED ON AND OFF THROUGHOUT THE SHIFT. PATIENT IS ON RA. PATIENT IS A 2PA W/FWW. PATIENT IS INCONTINENT AT TIMES. PATIENT USES URINAL IN BED. PATIENT IS CONFUSED AT TIMES AND REQUIRES REORIENTING FREQUENTLY. PATIENT USES CALL LIGHT PART OF THE TIME. PATIENT HAS BED ALARM ON FOR SAFETY. PATIENT RECEIVED PRN TYLENOL X1 FOR PAIN IN HIS RIGHT HIP FROM A PREVIOUS FALL. PATIENT HAS BRUISE TO RIGHT HIP AND RIGHT RIBS FROM PREVIOUS FALL.
--- NOTE | 2020-05-21 05:57 | NUR ---
PATIENT WAS FOUND TO HAVE PULLED IV. NEW IV STARTED AND IS INFUSING PER ORDER. BEDDING CHANGED. ATTEND CHANGED. PATIENT REPOSITIONED IN BED. PATIENT DENIES ANY PAIN. BED ALARM ON FOR SAFETY. NO FURTHER NEEDS NOTED. CALL LIGHT IN REACH.
--- NOTE | 2020-05-21 06:46 | NUR ---
LAB IN TO DRAW BLOOD. PATIENT GIVEN COFFEE PER REQUEST. NO FURTHER NEEDS NOTED.
--- NOTE | 2020-05-21 07:37 | NUR ---
Patient sitting up in bed watching tv. Patient denies pain at this time. Bed alarm intact. Personal supplies and call light within reach. Close to RN station.
--- NOTE | 2020-05-21 10:04 | NUR ---
Attempted to do discharge planning with patient who comes from [facility], and the plan is for him to return to [facility]. Patient is confused, thinks that he spent the night in the motel. Patient unable to answer questions regarding care and treatment at this time. There are no family members present in the room. Patient states that his lives in a [facility]. Discharge plan is safe with plans to have patient return to [facility] upon meeting discharge criteria. Patient denies questions for this RN.
--- NOTE | 2020-05-21 12:34 | NUR ---
Patient resting in bed, hob elevated. Patient eating lunch at this time. No needs. Bed alarm intact. IV patent.
--- NOTE | 2020-05-21 13:18 | NUR ---
PT IS ALERT, WELCOMED ME IN HIS RM. TURNED TV OFF. BEGAN CONVERSATION WITH PT AND SOON DISCOVERED PT IS CONFUSED. TELLING A STORY WENT FROM [facility] TO [place]. SEASONS ARE MIXED UP, PT ALSO STATED HIS IS ALSO IN THE HOSPITAL-EXPRESSED CONCERN FOR HER SAFETY. PT REQUESTED PRAYER, INFORMED LACI KINSEY OF PT'S CONFUSION. HIS IS NOT IN HOSP. WILL FOLLOW
--- NOTE | 2020-05-21 15:15 | NUR ---
Spoke with Verito from [facility]. She states they are concerned and wanting pt to go to Detox. He has been off alcohol for 1 day. He has been drinking heavily for 4 years. Per pt he has been drinking for 75 years. Pt is beligerant and abusive to staff when drinking. He also attempts to hit staff. Daughter was supplying alcohol, but stopped. Informed I will speak withpt and see if he is interested in Peer to Peer support and assist with treatment. Verito [facility] Spoke with J Luis and he states he does have a problem with drinking. He is upset as his daughter will no longer supply him with alcohol. He does agree to Peer to Peer and I will call them. Called and spoke with JESSICA and they will send a Peer up to speak with pt.
--- NOTE | 2020-05-21 16:25 | NUR ---
Patient has notable increased confusion. Pt disoriented to place and situation. Pt reports hearing thing in the room and seeing mice on the stanley. Patient becomes agitated with staff at times with patient cares. Patient calms with reorientation and is redirectable for the time being. Dr. Park to bedside to see patient. Plan updated to transfer patient to CCU for closer monitoring and higher level of care.
--- NOTE | 2020-05-21 16:25 | NUR ---
3PA PATIENT TO [facility] FROM BED. PATIENT UNABLE TO ASSIST MUCH AT ALL WITH HIS LEGS, BECOMES QUITE AGITATED AND CUSSING THROUGHOUT TRANSFER. PATIENT CONFUSED TO WHERE HE IS, WANTS TO GET DRESSED AND GO "SHOPPING" FOR THE HOSPITAL AND HIS . INCONTINENT OF URINE. PARTIAL BED CHANGE. DR MARTINEZ IN TO SEE PATIENT. CALL LIGHT IN REACH
--- NOTE | 2020-05-21 16:26 | NUR ---
Notified by staff, pt having DTs and will be moved to the Unit. [facility] updated.
--- NOTE | 2020-05-21 17:57 | NUR ---
Ativan 1mg IVP admin for ciwa score of 12.
[2020-05-21] MEDS ORDERED: VITAMIN B-1100 M1 PO (18:14)
[2020-05-21] MEDS ORDERED: VITAMIN B-121000 MCG PO (18:15)
[2020-05-21] MEDS ORDERED: ALOE VERA TOP (18:21)
[2020-05-21] MEDS ORDERED: LIDODERM1 EACH TOP (18:22)
[2020-05-21] MEDS ORDERED: TYLENOL325 MG PO (18:23)
[2020-05-21] MEDS ORDERED: LOPERAMIDE2 M1 PO (18:24)
[2020-05-21] MEDS ORDERED: MILK OF MA400 MG/5 M PO (18:25)
--- NOTE | 2020-05-21 18:25 | NUR ---
MED REC COMPLETE
--- NOTE | 2020-05-21 18:40 | NUR ---
Patient transferred to CCU. Report provided to LACI Arriola.
--- NOTE | 2020-05-21 18:49 | NUR ---
PATIENT GIVEN 2 MG IV ATIVAN FOR EXTREME TREMORS, DELUSIONS, AND HALLUCINATIONS. PT DISORIENTED, RESTLESS, AND CAN BE SEEN TREMORING IN MULTIPLE EXT. PT STILL PULLING AT LINES, MOVING ALL ARMS AROUND, BECOMING AGITATED, FALLING ASLEEP FOR 5 SECONDS AND THEN STARTLING AWAKE VIOLENTLY.
--- NOTE | 2020-05-21 19:14 | NUR ---
CALLED TO UPDATE ON PT INCREASED ANXIETY AND AGITATION. ORDER GIVEN TO INCREASE ATIVAN ORDER TO 1 TO 4 MG IV Q 30 MIN FOR CIWA SCORE 5 OR GREATER.
--- NOTE | 2020-05-21 20:00 | NUR ---
SHIFT REPORT RECEIVED FROM LACI COATES. PT REPEATEDLY WAKES AND EXHIBITS JERKING MOVEMENT IN LIMBS, APPEARS SOMEWHAT AGITATED. 2MG IV ATIVAN GIVEN PER CIWA. 2L O2 VIA OXYMASK IN PLACE. LUNGS DIM THROUGHOUT. HR REGULAR AT THIS TIME. BOWEL TONES ACTIVE, ABDOMEN SOFT. SKIN IS ECCHYMOTIC WITH LARGE BRUISE TO RIGHT HIP/BUTTOCK. SCATTERED SCABS AND BRUISING NOTED TO UPPER AND LOWER LIMBS. SKIN TEARS TO ARMS COVERED WITH ALLEVYN DRESSINGS. ATTENDS CHANGED FOR URINE INCONTINENCE. IV INTACT AND PATENT, FLUIDS INFUSING WNL. PT WITHIN VIEW OF NURSES' STATION. TEMP 99.4, HEAVY BLANKETS REMOVED AND ROOM TEMP DECREASED.
--- NOTE | 2020-05-21 20:52 | NUR ---
DR. MARTINEZ UPDATED ON PT'S CONDITION. HE IS OBTUNDED AND NOT RESPONDING TO STIMULI, GSC:8. PT IS BREATHING AT A RATE OF 16-24, WITH OCCASIONAL BRIEF EPISODE OF APNEA. WILL HOLD OFF AN GIVING ATIVAN FOR NOW AND ALLOW PT TO METABOLIZE WHAT HAS ALREADY BEEN GIVEN. LACI HANCOCK IS SITTING AT BEDSIDE WITH PT FOR SAFETY.
--- NOTE | 2020-05-21 21:40 | NUR ---
PT CONDITION UNCHANGED, LACI HANCOCK REMAINS AT BEDSIDE. REPOSITIONED ONTO LEFT SIDE WITH PILLOW SUPPORT.
--- NOTE | 2020-05-21 23:07 | NUR ---
PT INCONTINENT OF URINE. PERICARE, NEW LINENS AND ATTENDS PROVIDED. PT REPOSITIONED ONTO RIGHT SIDE WITH PILLOW SUPPORT. IS AGITATED WITH MOVEMENT, BUT SETTLES BACK DOWN. LACI HANCOCK REMAINS AT BEDSIDE.
--- NOTE | 2020-05-22 00:11 | NUR ---
ASSESSMENT COMPLETED. PT REMAINS OBTUNDED, HAS OPENED EYES AND LOOKED AROUND SPONTANEOUSLY ONLY ONCE PER LACI HANCOCK AT BEDSIDE. DOES NOT FOLLOW COMMANDS. PT FIGHTS AGAINST REPOSITIONING AND IS VERY STRONG. INCONTINENT OF URINE, ATTENDS CHANGED AND PT REPOSITIONED ONTO LEFT SIDE WITH PILLOW SUPPORT, HEELS ELEVATED OFF BED WITH PILLOW. IV INTACT AND INFUSING WNL. PUPILS WNL. 2L OXYMASK REMAINS IN PLACE, CONTINUES TO HAVE OCCASIONAL BRIEF EPISODES OF APNEA AND DESATURATIONS, BUT RECOVERS QUICKLY. ORAL CARE PROVIDED.
--- NOTE | 2020-05-22 02:15 | NUR ---
PT INCONTINENT OF LARGE AMOUNT OF URINE AND SMEAR OF BM. PERICARE PROVIDED. ALL LINENS CHANGED. PT REPOSITIONED ONTO RIGHT SIDE WITH PILLOW SUPPORT. RN REMAINS AT BEDSIDE FOR CLOSE OBSERVATION.
--- NOTE | 2020-05-22 04:00 | NUR ---
INCONTINENT OF URINE, ATTENDS CHANGED AND PERICARE PROVIDED. ASSESSMENT COMPLETED. PT IS ABLE TO OPEN EYES TO VOICE AT THIS TIME, OTHERWISE IS NOT FOLLOWING COMMANDS. MOANS, BUT IS NOT SPEAKING ANY WORDS. CONTINUES TO WAKE UP AGITATED AND FLAILS ARMS/LEGS, BUT IS MORE EASILY COMFORTED W/REASSURANCE. PT REPOSITIONED TO LEFT SIDE WITH PILLOW SUPPORT FOR COMFORT. IV INTACT AND INFUSING WNL. REMAINDER OF ASSESSMENT UNCHANGED. SANTI REMAINS IN ROOM 1:1.
--- NOTE | 2020-05-22 05:46 | NUR ---
ATTENDS CHANGED FOR LARGE URINE INCONTINENCE. PT REPOSITIONED TO RIGHT SIDE WITH PILLOW SUPPORT.
--- NOTE | 2020-05-22 07:40 | NUR ---
REPORT RECEIVED FROM NIGHTSHIFT RN, WILL CONTINUE PLAN OF CARE.
--- NOTE | 2020-05-22 08:04 | NUR ---
PT TITRATED TO ROOM AIR FROM 2L O2 VIA OXYMASK. PT CONTINUES TO BE MONITORED ONE TO ONE FOR ETOH WITHDRAWL.
--- NOTE | 2020-05-22 08:30 | NUR ---
THIS RN IN TO ASSESS PT AND ADMINISTER ORDERED MEDICATIONS. PT LAYING IN BED, EYES CLOSED, PT AWAKES TO PHYSICAL STIMULATION AND TO HIS NAME BUT DOES NOT OPEN EYES OR RESPOND. WHEN PT DOES TALK PT SPEECH IS GARBLED. PT IN NO APPARENT DISTRESS AT THIS TIME AND IS BEING REORIENTED TO UNIT WHEN HE AWAKES AND IN ORDER TO CALM HIM. PO MEDS UNABLE TO BE GIVEN AT THIS TIME DUE TO PT NOT BEING ALERT. CANE FEEDER IN ROOM WITH PT, BED IN LOWEST POSITION, WILL CONTINUE PLAN OF CARE.
--- NOTE | 2020-05-22 09:09 | NUR ---
PT PLACED ON 1L O2 OXYMASK DUE TO DESATURATIONS DURING PERIODS OF APNEA WHILE SLEEPING. PT REPOSITIONED UP ON BED. PT INCONINENT AND HAD VOIDED. PERICARE DONE, NEW ATTENDS IN PLACE. PT OPENED EYES WHILE REPOSITIONING AND CLEANING. PT REORIENTED TO HOSPITAL AND PT STATED THAT HE KNEW HE WAS IN THE HOSPITAL, PT STATED SOMETHING ELSE THAT WAS STILL GARBLED. PT NOW LAYING IN BED IN NO APPARENT DISTRESS. INSPECTOR HAIRSPRING IN ROOM, BED IN LOWEST POSITION, WILL CONTINE PLAN OF CARE.
--- NOTE | 2020-05-22 09:15 | NUR ---
supply technician sitting in room with pt. due to pt. getting aggitated and moving around in the bed frequently. Pt. is not awake. Pt. had a large incontent urine in the brief and bed. supply technician and rn changed and cleaned pt and bed. no other needs at this time. supply technician remains in pt. room
--- NOTE | 2020-05-22 10:46 | NUR ---
THIS RN IN TO FABIÁN WITH CHANGE PT HAD BEEN INCONTINENT OF URINE. AFTER DOING PERICARE, PLACING NEW ATTENDS, AND REPOSITIONING PT WAS MORE AWAKE FOR A BRIEF PERIOD AND WAS ABLE TO OPEN EYES, DRINK WATER, AND ACCEPT AN OFFER OF PUDDING. PT MEDICATIONS ADMINISTERED AT THIS TIME WITH PUDDING, PT TOLERATED INTAKE WELL AND WENT BACK TO SLEEP. PT STILL NOT FULLY ALERT AND STILL HAS GARBLED SPEECH AT TIMES. IVF INFUSING ORDERED, OXYMASK IN PLACE AT 1L, BED IN LOWEST POSITION, BUSINESS ASSOCIATE IN ROOM WITH PT. WILL CONTINUE PLAN OF CARE.
--- NOTE | 2020-05-22 10:54 | NUR ---
insulation inspector still sitting in the room with the pt. pt.has been more alert at times. pt had another large incontient urine. pt. was cleaned up and changed. no other needs at this time
--- NOTE | 2020-05-22 11:13 | NUR ---
THIS RN IN TO ADMINISTER PRN ZYPREXA TO PT. PT WILL AWAKE AT TIMES AND BECOME RESTLESS OR AGITATED. MEDICATION ADMINISTERED, PT TOLERATED PO INTAKE WELL WITH PUDDING, PT NOW LAYING IN BED SLEEPING. PT STILL DROWSY WHEN AWAKEN WITH PHYSICAL STIMULI OR LOUD VOICE, SPEECH STILL GARBLED. WILL CONTINUE PLAN OF CARE. CALL LIGHT IN REACH, BED IN LOWEST POSITION, IVF INFUSING ORDERED, NEWS CAMERAMAN IN ROOM WITH PT.
--- NOTE | 2020-05-22 12:20 | NUR ---
THIS RN IN TO ASSESS PT. PT LAYING IN BED SLEEPING, ASSESSMENT COMPLETE AT THIS TIME. PT STILL DROWSY AND HAS GARBLED SPEECH WHEN RESPONDING. PT ALSO RESTLESS AT TIMES. PT OPENS EYES TO PHYSICAL STIMULI. PT HAS MILD TREMORS AT TIMES SPECIFICALLY WHEN REACHING OUT. PT CHANGED AT THIS TIME WITH HELP FROM GAS DESULFURIZER PT WAS INCONTINENT OF URINE. PERICARE DONE, ATTENDS IN PLACE. PT REPOSITIONED ON BED, PILLOWS PLACED UNDER HIPS AND LEGS. IVF INFUSING ORDERED, 1L OXYMASK IN PLACE. BED IN LOWEST POSITION, WILL CONTINUE PLAN OF CARE.
--- NOTE | 2020-05-22 13:15 | NUR ---
PT'S DAUGHTER, BJ, IS HERE AT THE PT BEDSIDE, SHE IS GIVEN A FULL UPDATE TO PT'S PLAN OF CARE FOR THE DAY. ALL QUESTIONS ANSWERED. MS. LORENZO IS SLIGHTLY TEARFUL WHEN DISCUSSING HER FATHER'S LOC AND BEHAVIOR AT THIS TIME, SHE STATES; "I HAVE NEVER SEEN HIM LIKE THIS".
--- NOTE | 2020-05-22 13:59 | NUR ---
pt had a large incontent urine. pulping machine operator and rn cleaned and change pt. no other needs at this time
--- NOTE | 2020-05-22 13:59 | NUR ---
THIS RN IN TO ASSIST MONUMENTAL STONEMASON WITH PT. PT HAD ANOTHER EPISODE OF URINARY INCONTINENCE, PERICARE DONE, NEW ATTENDS IN PLACE, PT REPOSITIONED IN BED AFTERWARDS. PT STILL HAS GARBLED AND ONLY A FEW WORDS ARE UNDERSTANDABLE WHEN HE SPEAKS. PT OPENENING EYES MORE TO VOICE AND PHSYCIAL STIMULI. PT NOW LAYING IN BED, OXYMASK ON AT 1L, IVF INFUSING ORDERED. BED IN LOWEST POSITION, WILL CONTINUE PLAN OF CARE.
--- NOTE | 2020-05-22 14:30 | NUR ---
THIS RN IN TO ASSESS PT. PT STATED HE NEEDED TO VOID, A URINAL WAS OBTAINED FOR THE PT AND HELD IN PLACE FOR HIM. PT HAD ALREADY VOIDED IN HIS ATTENDS AND DID NOT VOID INTO THE URINAL DESPITE HIM STATING HE HAD TO. PERICARE DONE, NEW ATTENDS IN PLACE, PT REPOSITIONED UP ONTO BED. PT TAKEN OFF OF HIS OXYGEN AT THIS TIME AND IS NO ON ROOM AIR, SPO2 AT 95%. PT OFFERED ENSURE AND ONLY TOOK A FEW SIPS BEFORE REFUSING MORE. PT NOW LAYING, IVF INFUSING, ON ROOM AIR, STILL HAS SOME GARBLED SPEECH AND IS MORE ALERT THEN BEFORE. PT REPORTS NO FURTHER NEEDS, ED IN LOWEST POSITION, WILL CONTINUE PLAN OF CARE.
--- NOTE | 2020-05-22 15:25 | NUR ---
Update from Rn as pt unable to answer questions. Cont. med for detox.
--- NOTE | 2020-05-22 16:00 | NUR ---
THIS RN IN TO ASSESS PT. PT LAYING IN BED SLEEPING AT THIS TIME BUT WOKE DURING ASSESSMENT. ASSESSMENT COMPLETED, VS STABLE. PT LAYING IN BED RESTING BUT IS RESTLESS AT TIMES, PT CAN RESPOND APPROPRIATLEY AT TIMES BUT SPEECH CAN STILL BE GARBLED. PT REPORTS NO FURTHER NEEDS AT THIS TIME, IVF INFUSING ORDERED, BED IN LOWEST POSITION, BED ALARM ON, RN WATCHING PT, WILL CONTINUE PLAN OF CARE.
--- NOTE | 2020-05-22 18:01 | NUR ---
PT ATTENDS CHANGED, VERY SATURATED IN URINE. ROSA CARE DONE. BOOSTED PT UP IN BED AND REPOSITIONED UP SITTING HIGH FOR DINNER. PT ABLE TO TAKE 2 TABS OF TYLENOL WITH APPLESAUCE, HOWEVER HE CHEWS THEM FIRST. PT NOT ABLE TO TAKE LIQUIDS WITHOUT COUGHING AFTER SWALLOWING. PT ABLE TO JAVI SOME BITES OF MASHED POTATOES AND ICE CREAM, THEN STATES "NO MORE THANK YOU". PT APPEARS TO BE HALLUCINATING, PICKING AT THE AIR, PRETENDING TO DRINK OUT OF A "POP BOTTLE" THAT IS NOT THERE.
--- NOTE | 2020-05-22 18:37 | NUR ---
PT LAYING IN BED RESTING. PT HAD JUST BECOME RESTLESS AFTER WAKING BRIEFLY AND WAS REORIENTED TO HIS SURROUNDINGS BY LACI COATES. PT NOW LAYING IN BED RESTING. PT STILL HAS SOME SPEECH THAT IS GARBLED AND IS STILL RESTLESS AT TIMES. IVF INFUSING ORDERED, BED IN LOWEST POSITION, LACI COATES WATCHING PT. WILL CONTINUE PLAN OF CARE.
--- NOTE | 2020-05-22 19:30 | NUR ---
report recieved, care of patient assumed at this time.
--- NOTE | 2020-05-22 19:59 | NUR ---
ASSESSMENT COMPLETED AT THIS TIME. PT INCONTINENT OF URINE. PERICARE PROVIDED. PT ALERT, BUT DISORIENTED. SPEECH IS GARBALED. TREMOR IN HANDS NOTED WITH ACTIVITY. PT OPENS EYES TO VOICE AND TOUCH. RESTLESS IN BED, MOVING ARMS AND LEGS, CALLING OUT WITH INCOMPREHENSIBLE WORDS INTERMITTENTLY THEN FALLING BACK TO SLEEP. ORAL CARE COMPLETED. IV FLUIDS INFUSING. PT REMAINS ON ONE TO ONE SUPERVISION. BED ALARM IN PLACE. WILL CONTINUE TO MONITOR.
--- NOTE | 2020-05-22 22:44 | NUR ---
PT INCONTINENT OF URINE. DEPENDS CHANGED AND PT REPOSITIONED IN BED. PLACED ON 3 L OXY MASK FOR BRIEF PERIODS OF SLEEP APNEA. REMAINS UNDER ONE TO ONE SUPERVISION. WILL CHERYL MONITOR.
--- NOTE | 2020-05-22 23:00 | NUR ---
SHIFT REPORT RECEIVED FROM TAL AGUERO. PT RESTING IN BED, EYES CLOSED. RR EVEN, UNLABORED. DOOR OPEN, CALL LIGHT IN REACH.
--- NOTE | 2020-05-23 | NUR ---
PT BRIEFS CHANGED. ASSESSMENT, VS AND I&O COMPLETED. PT MUMBLES WHEN ASKED QUESTIONS. PT UNABLE TO FOLLOW COMMANDS OR ANSWER QUESTIONS. LUNGS CLEAR, HR SR @ 84. SPO2 94% ON RA. LEFT LEG AND HIP DISCOLORATION NOTED. ABD SOFT, NONTENDER, BOWEL TONES ACTIVE. SCATTERED ABRASIONS NOTED ON ARMS. IV WNL. PT REPOSITIONED. PULSES AND MOTOR INTACT, UNABLE TO ASSESS SENSATION.IV FLUIDS INFUSING PER ORDER. DOOR OPEN, CALL LIGHT IN REACH. ORAL CARE PROVIDED.
--- NOTE | 2020-05-23 01:00 | NUR ---
PT RESTING IN BED, EYES CLOSED. RR EVEN, UNLABORED. CALL LIGHT IN REACH, RAILS UP, DOOR OPEN.
--- NOTE | 2020-05-23 02:09 | NUR ---
PT RESTLESS IN BED. BRIEFS CHANGED. PT REPOSITIONED. BED RAILS UP, DOOR OPEN.
--- NOTE | 2020-05-23 03:00 | NUR ---
PT RESTING IN BED, EYES CLOSED. RR EVEN, UNLABORED. CALL LIGHT IN REACH, RAILS UP, DOOR OPEN.
--- NOTE | 2020-05-23 04:09 | NUR ---
ASSESSMENT, VS AND I&O COMPLETED. PT ORIENTED TO PERSON AND BIRTHDATE ONLY. PT IS MORE CLEAR IN SPEECH. PT WAKES OCCASSIONALLY BUT CAN BE REASSURED. BRIEFS CHANGED AND PT REPOSTIONED. IV WNL. IV FLUIDS INFUSING PER ORDER. LUNGS CLEAR. HR SR @ 86. ABD SOFT, NONTENDER, BOWEL TONES ACTIVE. CMS INTACT. ICE WATER PROVIDED. NO OTHER NEEDS. CALL LIGHT IN REACH, DOOR OPEN, 1:1 IN ROOM.
--- NOTE | 2020-05-23 04:29 | NUR ---
NEW BAG OF IV FLUIDS PROVIDED. 1:1 IN ROOM.
--- NOTE | 2020-05-23 05:44 | NUR ---
PT REPOSITIONED. BRIEFS CHANGED. 1:1 IN ROOM.
--- NOTE | 2020-05-23 06:32 | NUR ---
VS COMPLETED. PT ANSWERING SOME QUESTIONS APPROPRIATELY. 1:1 IN ROOM.
--- NOTE | 2020-05-23 07:50 | NUR ---
REPORT RECEIVED FROM NIGHTSHIFT RN, WILL CONTINUE PLAN OF CARE. PT LAYING IN BED AWAKE AT THIS TIME. PT ASKED FOR WATER, WHICH WAS PROVIDED. PT REPORTS NO FURTHER NEEDS AT THIS TIME. IVF INFUSING, BED IN LOWEST POSITION, BED ALARM ON. WILL CONTINUE PLAN OF CARE.
--- NOTE | 2020-05-23 08:44 | NUR ---
v/s and I&Os done, water given, cut off tender glass and rn assisted pt to chair for breakfast. no other needs at this time. call light within reach
--- NOTE | 2020-05-23 09:00 | NUR ---
THIS RN IN TO ASSESS PT AND ADMINISTER ORDERED MEDICATIONS. PT SITTING IN BEDSIDE CHAIR AT THIS TIME AWAKE AND ALERT EATING BREAKFAST. PT UNABLE TO ANSWER LOCATION, YEAR AT THIS TIME. ORDERED MEDICATIONS ADMINISTERED, PT ASSESSED, PRN TYLENOL ADMINISTERED FOR MILD PAIN PER PT'S REQUEST. IV IN L FOREARM NO LONGER PATENT, IV ABX WILL BE STARTED ONCE NEW IV IS INSERTED. PT REPORTS NO FURTHER NEEDS WHEN ASKED, WILL CONTINUE PLAN OF CARE. CALL LIGHT IN REACH, PT IN BEDSIDE CHAIR AWAKE EATING BREAKFAST.
--- NOTE | 2020-05-23 10:21 | NUR ---
THIS RN IN TO START A NEW IV AND START IV ABX. PT SITTING IN CHAIR WATCHING TV AND HAD FINISHED HIS BREAKFAST. IV DC'D IN L FOREARM AND WAS WNL. NEW IV PLACED IN R AC PER PROTOCOL. PT REPORTS NO FURTHER NEEDS AT THIS TIME, IV ABX INFUSING, WILL CONTINUE PLAN OF CARE. CALL LIGHT IN REACH, PT SITTING IN BEDSIDE CHAIR.
--- NOTE | 2020-05-23 11:45 | NUR ---
REPORT RECEIVED FROM LACI CONCEPCION. AWAITING PTS ARRIVAL TO MED/SURG.
--- NOTE | 2020-05-23 11:51 | NUR ---
PT ALERT, SITTING IN CHAIR. PT WAS RESPONSIVE TO MY VISIT-WE SHARED A LIGHT HEARTED MOMENT. GAVE ENCOURAGEMENT AND LEFT G.POST WITH PT. WILL FOLLOW
--- NOTE | 2020-05-23 12:00 | NUR ---
1145 REPORT GIVEN TO MEDICAL SURGICAL NURSE KEV FOR PT. TRANSFER 1200 PT TRANSFERED DOWN TO THE MEDICAL SURGICAL FLOOR VIA CHAIR. PT AWAKE AND ALERT, ON ROOM AIR, SALINE LOCKED. PT BROUGHT DOWN WITH BELONGINGS. PT HANDED OFF TO LACI ANGULO TO CONTINUE PLAN OF CARE.
--- NOTE | 2020-05-23 12:01 | NUR ---
PT ARRIVED FROM CCU TO MED/SURG. PT TRANSFERED BY CHAIR. PT REMAINS UP TO CHAIR AT THIS TIME. PT DENIES PAIN AND NAUSEA "EXCEPT WHEN YOU PUSH THERE." PT POINTS TO RIGHT HIP. LARGE BRUISE OVER RIGHT HIP MEASURING 36CM FROM MID THIGH TO MID ABDOMINAL AREA BY 19CM FROM BACK TO FRONT. BANDAID REMOVED FROM LEFT ELBOW, 1CM BY 1.5 CM SKIN TEAR NOTED UNDER BANDAID. ALLEVYN APPLIED. ALLEVYNS TO LEFT HAND, AND 2 ALLEVYNS TO RIGHT ELBOW REMAIN IN PLACE, C/D/I. IV SALINE LOCKED, FLUSHES EASILY, ALCOHOL CAP APPLIED. PT DISORIENTED TO ALL AT THIS TIME. PT MAKES STATEMENTS THAT DO NOT MAKES SENSE SUCH "ISN'T AN EYE MASK A QUALIFIER FOR YOUR LORD." PT ALSO STATES "I'LL HAVE TO CATCH A RIDE TO [employer], I KNOW [place] BUT [place] SO I CAN GET TO [employer]." PT REORIENED TO PLACE AND SITUATION. CIWA SCORE OF 5 RELATED TO DISORIENTATION. PT UP TO STAND AND UP TO COMODE. PT VERY UNSTEADY ON FEET AND UNABLE TO REMAIN STANDING FOR LONG. HEAVY 2 PERSON ASSIST WITH FRONT WHEEL WALKER PIVOT TO BEDSIDE COMODE. DEPENDS WET. RSOA CARE DONE. DEPENDS CHANGED. PT VOIDS 200ML CLEAR CONCENTRATED URINE. HEAVY 2 PERSON ASSIST FWW BACK TO CHAIR. CHAIR ALARM PLACED. LAST BOWEL MOVEMENT NOTED TO BE ON 3/4. NIO MEDICATIONS ORDERED. BOWEL TONES ACTIVE. PT EATING LUNCH. PT HAS TROUBLE WITH CORRDINATION BUT IS ABLE TO FEED SELF. PT CONTINUES TALKING TO HIMSELF. CURTAIN OPEN SO PT CAN BE EASILY VIEWED FROM NURSES STATION. CHAIR ALARM ON. CALL LIGHT WITHIN REACH.
--- NOTE | 2020-05-23 13:56 | NUR ---
INCREASING AGITATION NOTED. CIWA SCORE OF 9. PT AGITATED AND SETTING OF CHAIR ALARM FREQUENTLY. MD CONSULTED. NEW ORDERS PLACED. ATAVAN GIVEN (SEE MAR). PT GIVEN TOWELS TO FOLD AND SEEMS TO CALM WITH SOMEONE AT BEDSIDE. CHAIR ALARM ON. ICE WATER REFILLED. NO ADDITIONAL REQUESTS AT THIS TIME. CALL LIGHT WIHTIN REACH.
--- NOTE | 2020-05-23 14:53 | NUR ---
THIS RN TO ROOM TO CHECK ON PT. PT UP IN ROOM WORKING WITH PHYSICAL THERAPY. 2 PERSON ASSIST WITH GAIT BELT FOR PHYSICAL THERPAY WORK. PT CONTINUES TO BE DISORIENTED AND OCCATIONALY MAKING SENTENCES THAT DO NOT FIT THE SITUATION. PT DENIES PAIN AND NAUSEA. PT CONTINUES WORKING WITH PHYSICAL THERAPY. NO ADDITIONAL REQUESTS OR COMPLAINTS. CALL LIGHT WITHIN REACH.
--- NOTE | 2020-05-23 15:00 | NUR ---
Update from Rn. Pt is wakening and not requiring bensos. Will move to the floor today.
--- NOTE | 2020-05-23 15:43 | NUR ---
THIS RN WALKING BY ROOM AND FINDS PT SITTING ON THE FLOOR. WENDY AND TAY (CHAIN REPAIRER) STATE PT SLID OFF OF CHAIR TO THE FLOOR. THIS EVENT WAS UNWITNESSED. PT IS HEAVY 2 PERSON ASSIST UP TO STAND AND THEN TO COMODE. PT VOIDS SMALL AMOUTNS OF CLEAR YELLOW URINE. ROSA CARE DONE. DEPENDS CHANGED. VITALS SIGNS STABLE. HEAVY 2 PERSON PIVOT ASSIST UP TO CHAIR. ASSESSMENT DONE: PT DENIES HITTING HIS HEAD. PT REPORTS 2/10 PAIN IN RIGHT LEG STATING "ALL UP AND DOWN HERE" PT POINTS TO BRUISED AREA OF LATEARL UPPER THIGH THROUGH LATERAL ABDOMEN. PT CONTINUES TO BE DISORIENTED TO ALL. PT REORIENTED FREQUENTLY AND GIVEN TOWELS TO FOLD, WHICH HELPS FOCUS HIS AGITATION, COMFOTORS X2 IN PLACE OVER PTS LEGS FOR WEIGHTED COMFORT. CIWA SCORE OF 6. STRENGTH UNIFORM BILATERALLY. NO NEW SKIN WOUNDS NOTED. LARGE BRUISE ON RIGHT SIDE FROM LATERAL MID THIGH, THROUGH RIGHT HIP, AND UP TO MID ABDOME CONTINUES, UNCHANGED. ALLEVYNS OVER ARMS C/D/I. CALLED AND UPDATED ON PTS CONDITION AND SITUATION. NO NEW ORDERS. PT REMAINS UP TO CHAIR. CHAIR ALARM ON. CUTRAIN OPEN, PT EASILY VEWIED FROM NURSES STATION.
--- NOTE | 2020-05-23 17:34 | NUR ---
THIS RN TO ROOM TO CHECK ON PT. PT UP TO CHAIR FEEDING SELF DINNER. PT REPORTS DINNER "IS PRETTY GOOD." PT CONTINUES TO BE DISORIENTED TO ALL BUT IS COOPERATIVE AND FOLLOWING DIRECTIONS AT THIS TIME. PT DENIES PAIN AND NAUSEA. CALL LIGHTWITHIN REACH. PT EASILY VIEWED FROM NURSES STATION. CHAIR ALARM ON.
--- NOTE | 2020-05-23 17:59 | NUR ---
PT HERE FOR SEIZRE AND UTI, TRANSFERED FROM CCU THIS SHIFT AFTER CIWA SCORES FOR ALCOHOL WITHDRAWL REMAINS WNL. PT HEAVY 2PERSON ASSIST WITH FRONT WHEEL WALKER UP TO COMODE AND BED THIS SHFIT. PT HAD SLIDE TO GROUND FALL OUT OF CHAIR THIS SHIFT, NO CHANGES IN ASSESSMENT NOTED, MD AWARE. PT TOLERATING REGULAR DIET AND FEEDING SELF WITH SOME DIFFICTULY. PT INCONTINANT AT TIMES. VOIDING QUANTITY SUFFICIENT THIS SHIFT. SCHEDULED LORAZAPAM GIVEN THIS SHIFT, NEW ORDERS. CIWA SCORES FROM 5-6 THIS SHIFT. LARGE BRUSIES NOTED OVER PTS BODY AFTER PREVIOUS FALLS AT HOME, [place]. PRN TYLENOL GIVEN. PT DOES NOT USE CALL LIGHT. PT HAVE BEEN DISORIENTED TO ALL THIS SHIFT AND NEEDS FREQUENT REDIRECTION AND REORIENTATION. BED/CHAIR ALARM IN PLACE.
--- NOTE | 2020-05-23 18:20 | NUR ---
THIS RN TO ROOM TO CHECK ON PT. PT REMAINS UP TO CHAIR. CIWA SCORE OF 5. PT ASKING ABOUT HIS . ORIENTED ONLY TO SELF AT THIS TIME. PT DENIES REQUESTS OR COMPLAINTS. PT DENIES PAIN AND NAUSEA. CHAIR ALARM ON. CALL LIGHT WITHIN REACH. PT EASILY VIEWED FROM NURSES STATION.
--- NOTE | 2020-05-23 19:43 | NUR ---
BEDSIDE REPORT RECEIVED FROM LACI ANGULO. pt UP IN CHAIR, CHAIR ALARM ON. LACI COLEMAN IN ROOM FOR CLOSE MONITORING. IV SL AND IN PLACE. pt REQUESTING SANDWICH, MILK. REFUELING RAMP SUPERVISOR RN NOTIFIED.
--- NOTE | 2020-05-23 20:40 | NUR ---
ASSISTED 1:1 LACI COLEMAN WITH CHANGING PT'S ATTENDS. HE IS NOW IN BED WITH CLEAN ATTENDS ON. VIRGINIA AGUERO REMAINS IN THE ROOM W/PT AT THIS TIME. BED ALARM IS ON.
--- NOTE | 2020-05-23 20:59 | NUR ---
pt SLEEPING IN BED, AWAKNES TO VOICE. ORIENTED TO PERSON, , RICCI. REORIENTATION PROVIDED TO EVENT, LOCATION, DATE. pt COOPERATIVE WITH CARES. VERY MILD TREMOR NOTED, pt DENIES HOLMAN, DENIES HALLUCINATIONS. SCHEDULED MEDICATIONS ADMINISTERED. MULTIPLE ALLEVYN DRESSINGS IN PLACE, DRY AND INTACT BILATERALLY ARMS. IV SITE FLUSHED WNL. BED ALARM ON.
--- NOTE | 2020-05-23 23:10 | NUR ---
pt SNORING, BREATHING UNLABORED. BED ALARM ON. RN [place] IN ROOM FOR CLOSE MONITORING.
--- NOTE | 2020-05-24 01:00 | NUR ---
pt SLEEPING, LEGS OVER SIDE OF BED. REPOSTIONED WITH RN [place] ASSIST. pt AWAKENS TO VOICE AND CLOSES EYES, DROWSY. NO NEEDS AT THIS TIME. BED ALARM ON.
--- NOTE | 2020-05-24 01:44 | NUR ---
pt CALLING OUT, CURSING. ATTEMPTING TO GET OUT OF BED TO GET TO THE RESTROOM. 2PA WITH FWW TO PIVOT TO BSC FOR VOID. DRIBBLING ON FLOOR PRIOR TO VOID. pt BACK IN BED, REFUSING GOWN, ASSISTED TO REPOSITION IN BED 2PA. BED ALARM ON. LACI COLEMAN REMAINS IN ROOM.
--- NOTE | 2020-05-24 03:13 | NUR ---
IN TO ASST RN WITH PT UP TP VOID, PT DECIDED TO USE URINAL INSTEAD, NO FURTHER NEEDS
--- NOTE | 2020-05-24 03:13 | NUR ---
pt CALLING OUT, CURSING. ASSISTED TO USE URINAL BY LACI COLEMAN AND WENDY MARTINES. pt LYING IN BED. BED ALARM ON.
--- NOTE | 2020-05-24 05:49 | NUR ---
PT UP TO BSC HEAVY 2PA WITH HELP OF RN [place]. CLEAN ATTENDS IN PLACE AND PT IS BACK IN BED. BED ALARM IS ON AND [place] RN IS IN ROOM WITH PT 1:1.
--- NOTE | 2020-05-24 06:36 | NUR ---
pt SLEEPING, AWAKENS TO VOICE. VSS. PRN PAIN MEDICATION ADMINISTERED WITH SCHEDULED MEDICATIONS FOR HIP PAIN. pt WITH OCCASIONAL GRIMACE WITH MOVEMENT. ASSESSMENT COMPLETE. MILD TREMOR NOTED WITH RAISING OF HANDS. ORIENTED TO SELF ONLY AT THIS TIME. pt DROWSY, BACK TO SLEEP. LACI COLEMAN IN ROOM FOR CLOSE MONITORING.
--- NOTE | 2020-05-24 07:09 | NUR ---
REPORT RECEIVED FROM LACI ESPITIA. PT RESTING ON LEFT SIDE WITH EYES CLOSED. RESPIRATIONS EVEN AND UNLABORED. BED RAILS UP. BED ALARM ON. PRODUCT SAFETY TECHNICAL ASSISTANT AT BEDSIDE FOR 1:1 OBSERVATION. PT ALLOWED TO REST.
--- NOTE | 2020-05-24 09:30 | NUR ---
MORNING ASSESSMENT AND MEDICATION DUE. PT UP TO BEDSIDE COMODE WITH PROFESSOR OF ENVIRONMENTAL SCIENCE. PT HAS SMALL FORMED BOWEL MOVMENT. ROSA CARE DONE. 2 PERSON HEAVY ASSIST WITH FRONT WHEEL WALKER UP TO CHAIR. PT REPORTS "JUST MY NORMAL ACHES" WHEN ASKED ABOUT PAIN. PT DENIES NAUSA. ASSESSMENT DONE: PT DISORIENTED TO PLACE AND DATE AND EVENTS. PT ABLE TO STATE NAME AND BIRTHDAY AND ABLE TO FOLLOW DIRECTIONS AT THIS TIME. CIWA SCORE OF 5 FOR TREMORS AND DISORIENTATION. IRREGULAR HERAT RATE CONTINUES. LARGE BRUISE TO LEFT MID THIGH THROUGH LEFT HIP AND UP TO MID ABDOMEN MEASURES 18CM ACROSS BY 42CM UP AND DOWN TODAY. ALLEVYNS TO SKIN WOUNDS ON ARMS CHANGED. WOUNDS APPEAR FOLLOWS: 1. LEFT ELBOW SKIN TEAR 1.5X1CM - NEW ALLEVYN APPLIED. 2. LEFT HAND SKIN TEAR 2.5 X1 CM WITH YELLOW DRAINAGE NOTED ON OLD ALLEVYN. NEW ALLEVYN IN PLACE. 3. SKIN TEAR TO RIGHT ELBOW 3CN BY 1.5 CM WITH RED DRAINAGE NOTED. NEW ALLEVYN APPLIED. 4. SKIN TEAR TO DISTAL RIGHT ELBOW 0.5CM X 0.5CM, NO DRAINAGE NOTED, WHITE/YELLOW WOUND BED. NEW ALLEVYN APPLIED. PT RESTING WITH EYES CLOSED, LOUD SNORING NOTED. CHAIR ALARM ON. PROFESSOR OF ENVIRONMENTAL SCIENCE AT BEDSIDE FOR 1:1 OBSERVATION. 5. 1CM LACERATION TO RIGHT FORARM, OLD RED DRAINAGE NOTED. NEW ALLEVYN APPLIED.
--- NOTE | 2020-05-24 10:00 | NUR ---
PT REQUESTING TO GO OUTSIDE TO HAVE A CIGARETTE, NICOTENE PATCH ORDERED. PT REORIENTED AND ASSISTED BACK TO CHAIR. PT DRIFTS OFF TO SLEEP, LOUD SNORING NOTED. CHAIR ALARM ON. DANCE INSTRUCTOR AT BEDSIDE FOR 1:1 OBSERVATION.
--- NOTE | 2020-05-24 11:00 | NUR ---
THIS RN TO ROOM TO CHECK ON PT. PT UP TO CHAIR, RESTING WITH EYES CLOSED, SNORING NOTED. CALL LIGHT WITHIN REACH. CHAIR ALARM ON. PT EASILY VEIWED FORM NURSES STATION. OFFICE SYSTEMS TECHNOLOGY INSTRUCTOR AT BEDSIDE FOR 1:1 OBSERVATION. PT ALLOWED TO REST.
--- NOTE | 2020-05-24 11:33 | NUR ---
UPON DR. MARTINEZ'S REQUEST, I CALLED [facility] TO SEE OF THEY COULD COME EVALUATE PATIENT TO GO BACK TO THEIR FACILITY. THEY SAID NOTHING CAN BE DONE UNTIL TUESDAY WHEN [facility] IS BACK IN OFFICE.
--- NOTE | 2020-05-24 12:21 | NUR ---
THIS RN TO ROOM TO CHECK ON PT. PT UP TO CHAIR. PT AGITATED AND RESTLESS. PT DENIES NEED TO VOID. PT DENIES PAIN. NICOTENE PATCH APPLIED. IV ABX INFUSION COMPLETE. IV SALINE LOCKED AT THIS TIME. PT GIVEN TOWEL TO FOLD. PT CALMS AND WORKS ON FOLDING TOWELS. PT WATCHIGN TV. SCARLET NGUYEN, AT BEDSIDE FOR 1:1 OBSERVATION. CALL LIGHT WITHIN REACH. CHAIR ALARM ON. PT EASILY VEWIED FROM NURSES STATION.
--- NOTE | 2020-05-24 14:21 | NUR ---
PATIENT TO BSC AND THEN TO BED FROM CHAIR, 2PA FWW GAITBELT. NO VOID, RN NOTIFIED. LINENS CHNAGED. CALL LIGHT IN REACH. BED ALARM ON. NO FURTHER NEEDS AT THIS TIME.
--- NOTE | 2020-05-24 14:50 | NUR ---
AFTERNOON ASSESSMENT DUE. PT IN BED RESTING WITH EYES CLOSED. SNORING NOTED WITH RESPIRATIONS. ABDOMINAL MUSCLE USE NOTED. PT OCCLUDING AIRWAY AT TIMES AND WAKES UP TO TAKE A DEEP BREATH. PT AWAKENS TO VOICE AND LIGHT TOUCH. PT DENIES PAIN AND NAUSEA. PT CONTINUES TO BE DISORIENTED TO ALL BUT SELF AND FOLLOWING SOME DIRECTIONS. PT INCONSISTANT WITH FOLLOWING DIRECTIONS AND DRWOSY, FALLS ALSEEP QUICKLY. CIWA SCORE OF 5 FOR DISORIENTATION AND MINOR TREMORS IN HANDS. PT NOTED TO HAVE MINIMAL VOIDS TODAY, ONLY 200ML THIS SHIFT. PT RECENTLY UP TO BEDSIDE COMODE AND WAS UNABLE TO VOID. MD NOTIFIED. NO CHANGES TO WOUNDS ON ARMS/ELBOWS OR TO BRUISE ON RIGHT HIP SINCE THIS MORNING ASSESSMENT. ALLEVYNS REMAIN C/D/I. PT DRIFTS QUICKLY BACK TO SLEEP. PILLOW PROPED UNDER PTS HEAD AND HEAD OF BED ELEVATED TO 38 DEGREES TO LESSEN SNORING AND IMPROVE AIRWAY/BREATHING. PT RESTING WITH EYES CLOESED. BED RAILS UP. BED ALARM ON. PT EASILY VIEWED FROM NURSES STATION.
--- NOTE | 2020-05-24 16:40 | NUR ---
THIS RN TO ROOM TO CHECK ON PT. PT RESTING IN BED, EYES OPEN. PT REQUESTS A SNACK AND SOME COFFEE. LUKE WARM COFFE PROVIDED (1/2 CUP) AND PUDDING PROVIDED. 2 PERSON ASSIST WITH FRONT WHEEL WALKER UP TO CHAIR. PT ABLE TO STAND THIS TIME WITH MINIMAL ASSISTNACE. PT TAKES STEPS TOWARD CHAIR AND ABLE TO MOSTLY BALANCE SELF. PT HAS TROUBLE FEEDING SELF PUDDING, ACTS IF HE CANNOT SEE THE SPOON, GRASPING FOR ITEMS AND FRUSTRATED WHEN HIS FINGERS END UP IN THE PUDDING. PT ASSISTED AND IS ABLE TO FEED SELF. CHAIR ALARM ON, CURTAIN OPEN SO PT CAN BE EASILY SEEN FROM NURSES STATION. CALL LIGHT WITHIN REACH.
--- NOTE | 2020-05-24 17:29 | NUR ---
PATIENT UP TO BSC AND BACK TO CHAIR, 2PA FWW. CHAIR ALARM ON. DAUGHTER WAS IN ROOM EARLIER AND TALKED WITH THIS COSMETICS MACHINE OPERATOR. SHE ASKED WHAT THE PLAN WAS, I INFORMED HER THAT DR. MARTINEZ WAS LOOKING AT DISCHARGE AND HAD ME CALL [facility] TO COME DO AN EVALUATION TO GO BACK BUT THEY SIAD NOTHING COULD HAPPEN UNTIL TUESDAY. THE DAUGHTER SAID " NO THE PATIENT IS GOING TO [place] BECAUSE [facility] CANNOT TAKE CARE OF THEM." NURSE NOTIFIED. DAVE TAVAREZ IN REACH. NO FURTHER NEEDS AT THIS TIME.
--- NOTE | 2020-05-24 18:04 | NUR ---
THIS RN TO ROOM TO CHECK ON PT. PT UP TO CHAIR FOR DINNER. PT DISORIENTED TO PLACE AND EVENTS BUT FOLLOWING DIRECTIONS AND EASILY REORIENTED AT THIS TIME. PT DENIES PAIN AND NAUSEA. PT DENIES ADDITIONAL REQUESTS OR COMPLAINTS. CALL LIGHT WITHIN REACH. 1:1 OBSERVATION, BY SCARLET NGUYEN, CONTINUES. CHAIR ALARM ON. PT EASILY VIEWED FROM NURSES STATION.
--- NOTE | 2020-05-24 18:06 | NUR ---
PT HERE FOR KATIA AND UTI WELL ALCOHOL WITHDRAWL. PT UP WITH 2 PERSON ASSIST AND FRONT WHEEL WALKER TO CHAIR, WITH PHYSICAL THERAPY AND TO BEDSIDE COMODE THIS SHIFT. PT TOELRATING REGULAR DIET AND ABLE TO FEED SELF THIS SHIFT. PT DISORIENTED TO PLACE, EVENTS AND DATE BUT GENERALLY ORIENTED TO SELF AND WILL FOLLOW DIRECTIONS MOST OF THE TIME. PT DENIES PAIN THIS SHIFT, FLACC SCORES OF 0-1/10. IV ABX GIVEN. PT VOIDING QUANTITY SUFFICIENT. NEW ALLEVYNS APPLIED TO SKIN TEARS ON ARMS. LARGE BRUISE CONTINUES FROM MIDDLE OF RIGHT THIGH THROUGH RIGHT HIP UP TO MID RIGHT ABDOMEN. 1:1 OBSERVATION THIS SHIFT. PT DOES NOT USE CALL LIGHT. BED/CHAIR ALARM FOR SAFETY.
--- NOTE | 2020-05-24 18:36 | NUR ---
PATIENT SITTING UP IN CHAIR EATING DINNER. VITALS AND I&O'S CHARTED. CALL LIGHT IN REACH. NO FURTHER NEEDS AT THIS TIME.
--- NOTE | 2020-05-24 19:58 | NUR ---
PATIENT 1 PERSON HEAVY ASSIST TO PIVOT FROM BEDSIDE ARM CHAIR TO COMMODE, THEN 1 PERSON HEAVY ASSIST PIVOT TO THE BED. PATIENT ATE 100% OF HIS DINNER AND IS NOW EATING A SNACK OF NUTS AND WATCHING TV. PATIENT HAD NO RESULTS ON THE COMMODE. HEAD OF BED IS ELEVATED AND CALL LIGHT IS IN REACH. NEW ICE WATER GIVEN.
--- NOTE | 2020-05-24 20:32 | NUR ---
PATIENT'S CIWA=4, PATIENT DISORIENTED TO DATE MORE THAN 3 DAYS. HE KNOWS HIMSELF AND THE HOSPITAL HE IS IN. PM MEDS GIVEN AND CALL LIGHT IN PLACE. BED ALARM ON. PATIENT REMANS ON 1:1 CARE AND OBSERVATION. PATIENT IS VISIBLE TO THIS RN FROM THE NURSES STATION.
--- NOTE | 2020-05-24 21:54 | NUR ---
PATIENT RESTING IN BED QUIETLY WITH TV ON. BED ALARM ON AND PATIENT IS VISIBLE FROM THE NURSES STATION. CALL LIGHT IS ON REACH. NO NEEDS NOTED AT THIS TIME.
--- NOTE | 2020-05-24 22:10 | NUR ---
ASSISTED PRIMARY RN RUSSELL TO GET PT UP TO BSC MAS 2PA. HE IS NOW BACK IN BED WITH FRESH ATTENDS IN PLACE. RUSSELL AGUERO REMAINS IN ROOM WITH PT AT THIS TIME.
--- NOTE | 2020-05-24 22:11 | NUR ---
PATIENT UP TO THE BEDSIDE COMMODE, 2 PERSON MAX ASSIST, PIVOT TO THE COMMODE AND BACK TO BED. PATINET VOIDED 300ML. PATIENT RESITTUATED IN BED, NEW ATTENDS IN PLACE AND WATER REFILLED. CALL LIGHT IN REACH AND BED ALARM ON. PATIENT CAN BE SEEN FROM THE NURSES STATION.
--- NOTE | 2020-05-24 23:01 | NUR ---
PATIENT'S BED ALARM WENT OFF AND PATIENT COULD BE SEEN TRYING TO GET UP. PATIENT HAD SPILLED HIS ICE WATER ON HIMSELF. PATIENT'S LINEN AND CHUX WERE CHANGED AND PATIENT REPOSITION BY 2 RN'S. BED ALARM BACK ON AND PATIENT HAD NO OTHER NEEDS AT THIS TIME. CALL LIGHT IN REACH. PATIENT AGAIN BEING OBSERVED 1:1 BY THIS RN.
--- NOTE | 2020-05-25 00:09 | NUR ---
PATIENT RESTING AND SNORING, EYES CLOSED, RESPIRATIONS REGULAR AND EVEN, CALL LIGHT IN REACH, BED ALARM ON, AND NO CURRENT NEEDS. PATIENT VISUALIZED BY THIS RN FROM THE NURSES STATION.
--- NOTE | 2020-05-25 01:52 | NUR ---
PATIENT UP TO THE COMMODE WITH 2 PERSON MAX ASSIST IN PIVOTING PATIENT AND BACK TO BED. VOIDED 200MLS. BED ALARM BACK ON, CALL LIGHT IN REACH, AND PATIENT IS VISIBLE TO THIS RN FROM THE NURSES STATION.
--- NOTE | 2020-05-25 03:26 | NUR ---
PATIENT RESTING QUIETLY, EYES CLOSED, RESPIRATIONS REGULAR AND EVEN, CALL LIGHT IN REACH, BED ALARM ON, 1:1 OBSERVATION.
--- NOTE | 2020-05-25 03:49 | NUR ---
PATIENT STARTED TO GET UP AND THIS RN AND WENDY MARTINES WENT IN AND HELPED PATIENT WITH 2 PERSON MAX ASSIST TO THE BEDSIDE COMMODE. PATIENT PIVOTED OVER TO THE COMMOSE AND BACK WITH 2PMA. PATIENT'S BRIEFS WERE CHANGED HE WAS INCONTINENET AND HE VOIDED WELL. PATIENT BACK IN BED, BED ALARM ON, LIGHTS DOWN, CALL LIGHT IN REACH. PATIENT CAN BE SEEN FROM THE NURSES STATIN BY THIS RN.
--- NOTE | 2020-05-25 03:50 | NUR ---
IN TO ASST RN WITH 2PA PIVOT TO BSC, PT THEN BACK TO BED, SIP OF WATER PROVIDED ALSO, NO FURHTER NEEDS AT THIS TIME
--- NOTE | 2020-05-25 05:52 | NUR ---
PATIENT STILL RESTING QUIETLY, EYES CLOSED, RESPIRATIONS REGULARAND EVEN, CALL LIGHT IN REACH, BED ALARM ON. PATIENT CAN BE SEEN FROM THE NURSES DESK BY THIS RN.
--- NOTE | 2020-05-25 06:29 | NUR ---
PATIENT HAS BEEN UP TO THE BEDSIDE COMMODE X4 THIS SHIFT AND 3 OUT OF 4 TIMES HE NEEDED A 2 PERSON MAX ASSIST, HE WAS ABLE TO TRANSFER ONE TIME WITH A HEAVY 1 PERSON MAX ASSIST. PATIENT WAS ORIENTED TO PERSON AND PLACE AT THE BEGINING OF SHIFT, BUT SHORTLY THERE AFTER HE HAS ONLY BEEN ORIENTED TO PERSON. PATIENT'S IV IS INTACT AND FLUSHES WELL. LUNGS CLEAR DEMINISHED IN THE BILAT BASES, BOWEL TONES ACTIVE, PATIENT HAS GOO ORAL FLUID INTAKE AND ATE 100% OF DINNER. PATIENT HAS BEEN INCONTINENT X2 WELL THE TRIPS TO THE COMMODE AND URINE OUTPUT IS SUFFICIENT. PATIENT HAS BEEN ON 1:1 OBSERVATION ALL NIGHT BY THIS RN. BED ALARM HAS BEEN ON AND CALL LIGHT HAS BEEN IN REACH THOUGH PATIENT HAS NOT USED IT THIS SHIFT. PATIENT RESTING WATCHING TV AT THIS TIME.
--- NOTE | 2020-05-25 07:00 | NUR ---
SHIFT REPORT RECIEVED BY RN. PT LYING IN BED. EYES CLOSED. RR WNL WITH UNLABORED BREATHING. BED ALARM ON. CALL LIGHT IN REACH.
--- NOTE | 2020-05-25 07:55 | NUR ---
2PA PATIENT TO CHAIR USING FWW. FACE AND HANDS WASHED. PATIENT ENJOYING A CUP OF COFFEE AND WATCHING MORNING NEWS. PATIENT IN GOOD SPIRITS THIS MORNING BUT CONFUSED, ASKING "IS THIS PLACE STILL FULL OF ALL THOSE CREEPY GUYS" CALL LIGHT IN REACH, THIS BLOOD AND PLASMA LABORATORY ASSISTANT MONITORING
--- NOTE | 2020-05-25 08:57 | NUR ---
PT SITTING UP IN CHAIR. ALERT AND ORIENTED X3. SCHEDULED MEDS GIVEN. ASSESSMENT COMPLETE. PT EATING MEAL AT THIS TIME. LUNG SOUNDS CLEAR, BOWEL TONES ACTIVE. DENIES SOB. PAIN 5/10 ON RIGHT HIP BUT TOLERABLE. CALL LIGHT IN REACH.
--- NOTE | 2020-05-25 09:56 | NUR ---
PATIENT SITTING UP IN CHAIR, FINISHED WITH BREAKFAST. VITALS AND I&OS CHARTED.
--- NOTE | 2020-05-25 10:09 | NUR ---
PT PIVIT FROM CHAIR TO BED WITH FWW. TOLERATED WELL. PT C/O PAIN 6/10 TYLENOL GIVEN PER REQUEST. PT REPOSITIONED IN BED. CALL LIGHT IN REACH. SITTER IN ROOM.
--- NOTE | 2020-05-25 10:42 | NUR ---
THERAPY IN TO WORK WITH PATIENT, PATIENT WALKED AROUND ENTIRE ROOM WITH FWW, RESTING ONCE IN RECLINER. TOLERATED WELL, NEW BRIEFS ON, INCONTINENT OF URINE. BACK IN BED. THIS CATALOGING ASSISTANT MONITORING.
--- NOTE | 2020-05-25 10:46 | NUR ---
PHYSICAL THERAPY STATED PT DID WELL ON WALK TODAY. 2P/FWW.
--- NOTE | 2020-05-25 11:16 | NUR ---
PT LYING IN BED. EYES CLOSED. RR WNL WITH UNLABORED BREATHING. CALL LIGHT IN REACH. SITTER IN ROOM.
--- NOTE | 2020-05-25 12:23 | NUR ---
PATIENT HAS BEEN RESTING IN BED FOR THE LAST HOUR, OFTEN SNORING. LUNCH DELIVERED, PATIENT WOKE AND 1PA TO CHAIR. REQUEST TO USE BR. PATIENT WALKED WELL WITH FWW, FOLLOWED SIMPLE COMMANDS. INCONT OF URINE, USED TOILET WELL, NEW BRIEFS ON. THIS SENIOR [employer]ITAL MARKETS SPECIALIST MONITORING
--- NOTE | 2020-05-25 13:08 | NUR ---
REPLACED GOWN. PT 2P/FWW FROM CHAIR TO BED. PT TOLERATED WELL. CALL LIGHT IN REACH. EDUCATION GIVEN BY LACI BUTT ON THE USE OF CALL LIGHT. PT VERBALIZED UNDERSTANDING. CALL LIGHT IN REACH.
--- NOTE | 2020-05-25 14:24 | NUR ---
PATIENT RESTING IN BED, EYES CLOSED. VITALS AND I&OS CHARTED. THIS BIOLOGY TUTOR MONITORING
--- NOTE | 2020-05-25 15:55 | NUR ---
PT 1P/FWW TO THE BATHROOM. TOLERATED WELL. CRACKLES NOTED ON LOWER BILATERAL LOBES. PT SITTING UP IN CHAIR. ASSESSMENT COMPLETE. PT DENIES PAIN. PT STATES THAT HE WANTS A CIGAR AND INTERNAL MEDICINE PHYSICIAN ASSISTANT. REORIENTED PATIENT TO PLACE AND TIME. PT VERBALIZED UNDERSTANDING. DAUGHTER IN ROOM. STATES HE LOOKS AND SEEMS ALOT BETTER. PT HAS BEEN RESPONSIVE. ALERT AND ORIENTED. PT NEEDS REINFORCEMENT ON PLACE AND TIME.
--- NOTE | 2020-05-25 18:23 | NUR ---
PT LYING IN BED. EYES CLOSED. AWOKE TO VOICE. PT 1P/FWW TO THE CHAIR. ASSISTED WITH MEAL TRAY. SCHEDULED MEDS GIVEN. REORIENTED TO TIME AND PLACE. CALL LIGHT IN REACH.
--- NOTE | 2020-05-25 19:50 | NUR ---
PATIENT RESTING QUIETLY AT THIS TIME WATCHING TV FROM BED. PATIENT HAS NO CURRENT NEEDS, BED ALARM ON, CALL LIGHT IN REACH, PATIENT CAN BE SEEN FROM THE NURSES STATION.
--- NOTE | 2020-05-25 20:25 | NUR ---
BED ALARM SOUNDING. pt MOVING UP IN BED, ALARM RESET TO LEAST SENSITIVE ALARM. pt REQUESTING COFFEE, BREWING AT THIS TIME.
--- NOTE | 2020-05-25 20:42 | NUR ---
ROUNDED CHARGE. VSS. pt DENIES TOILETING NEEDS. pt AWAKE, ALERT, ASKING HIS PLAN FOR TOMORROW, "WHAT TIME PEOPLE WAKE UP AROUND HERE". COFFEE PROVIDED REQUESTED. PRIMARY RN RUSSELL IN ROOM.
--- NOTE | 2020-05-25 20:51 | NUR ---
PATIENT DENIES PAIN AND IS ORIENTED TO SELF, BUT REORIENTS QUICKLY WITH VERBAL CUES. PATIENT GIVEN 1 CUP APPLE JUICE AND A CUP OF DECAF COFFEE AT HIS REQUEST. PATIENT'S CALL LIGHT IS IN REACH, BED ALARM ON, CALL LIGHT IN REACH, AND PATIENT CAN BE SEEN FROM THE NURSES STATION. PATIENT5 HAD NO OTHER NEEDSAT THIS TIME.
--- NOTE | 2020-05-25 23:02 | NUR ---
PATIENT RESTING QUIETLY, EYES CLOSED, RESPIRATIONS REGULAR AND EVEN, BED ALARM ON, CALL LIGHT IN REACH, AND PATIENT CAN BE SEEN BY THIS NURSE FROM THE NURSES STATION.
--- NOTE | 2020-05-25 23:55 | NUR ---
PATIENT HAS NOT VOIDED ON THIS SHIFT SO FAR, PATIENT'S ATTENDS ARE DRY AND HIS URINE OUTPUT HAS BEEN QS, BUT WILL CONTINUE TO MONITOR FOR INCONTINENCE. PATIENT HAS BEEN RESTING QUIETLY. BED ALARM REMAINS ON, CALL LIGHT IN REACH, NO NEEDS AT THIS TIME.
--- NOTE | 2020-05-26 00:21 | NUR ---
PATIENT TRIED TO GET OUT OF BED AND BED ALARM WENT OFF. THIS RN SAW PATIENT TRYING TO GET AND RESPONDED. PATIENT NEEDED TO GO TO THE RESTROOM. AMBULATED WITH 1PA AND FWW INTO THE BATHROOM AND VOIDED 300MLS. PATIENT WAS ALREADY INCONTINENT IN HIS ATTENDS AND PATIENT WAS CLEANED UP AND NEW ATTENDS IN PLACE. PATIENT BACK IN BED, BED ALARM ON, CALL LIGHT IN REACH, PATIENT DENIES ANY PAIN. LIGHTS TURNED DOWN, LEFT BEDRAIL UP, NO OTHER CARE NEEDS AT THIS TIME.
--- NOTE | 2020-05-26 01:07 | NUR ---
PATIENT RESTING QUIETLY IN BED WITH HEAD OF BED ELEVATED TO 26o DEGREES. PATIENT'S EYES ARE CLOSED, RESPIRATIONS REGULAR AND EVEN, BED ALARM ON, CALL LIGHT IN REACH, PATIENT CAN BEE SEEN FROM THE NURSES STATION.
--- NOTE | 2020-05-26 02:57 | NUR ---
PATIENT CONTINUES TO REST QUIETLY WITH EYES CLOSED, RESPIRATIONS REGULAR AND EVEN, HEAD OF BED ELEVATED TO 26o DEGREES, BED ALARM ON, AND PATIENT CAN BE SEEN FROM THE NURSES STATION DESK BY THIS RN, CALL LIGHT IS IN REACH.
--- NOTE | 2020-05-26 03:45 | NUR ---
NOTICED PATIENT SQUIRMING AROUND IN BED, WENT INTO THE ROOM AND PATIENT HAD VOIDED 100MLS INTO THE URINAL AND HAD BEEN INCONTINENT AND THE ATTENDS WAS FULL OF URINE ALSO. PATIENT WASHED UP, LINENS DID NOT NEED CHANGING THEY WERE NOT WET, A NEW CHUX AND NEW DEPENDS WERE PUT IN PLACE. PATIENT HAD NO OTHER NEEDS AT THIS TIME. BED ALARM ON AND CALL LIGHT IN REACH, AND PATIENT CAN STILL BE SEEN BY THIS RN FROM THE NURSES STATION.
--- NOTE | 2020-05-26 05:38 | NUR ---
PATIENT MOVING AROUND IN HIS ROOM AND DROPPED HIS URINAL ON THE FLOOR. WENT IN AND HELPED PATIENT FINISH VOIDEING 225MLS IN THE URINAL BUT HE WAS ALREADY INCONTINENT. ATTENDS AND CHUX CHANGED, BEDDING WAS NOT WET, PATIENT WASHED UP. PATIENT HAS HAD 3 OF THESE INCIDENCE OF TRYING TO USE THE URINAL AND ALREADY BEING INCONTINENT THIS SHIFT. PATIENT IS TAKING IN PO FLUIDS WELL, DEFINATELY VOIDING QUANTITY SUFFICIENT. BED ALARM HAS BEEN ON ALL NIGHT, AND PATIENT CAN BE SEEN FROM THE NURSES STATION. PATIENT DID AMBULATE TO THE RESTROOM ONE TIME WITH 1PA AND FWW. PATIENT'S VS HAVE BEEN WITHIN PARAMETERS WITH A SLIGHTLY ELEVATED DIASTOLIC B/P. IV INTACT AND FLUSHES WELL. PATIENT HAS NO FURTHER CARE NEEDS AT THIS TIME.BED ALARM REMAINS ON WITH CALL LIGHT IN REACH.
--- NOTE | 2020-05-26 07:00 | NUR ---
PT LYING IN BED. EYES CLOSED. RR WNL WITH UNLABORED BREATHING. SHIFT REPORT RECIEVED BY RN. IV SALINE LOCKED. CALL LIGHT IN REACH.
--- NOTE | 2020-05-26 07:20 | NUR ---
Texted Summer message as I could not reach by phone. Updated Dr. Tillman will dc pt today and asked if she could please call.
--- NOTE | 2020-05-26 07:32 | NUR ---
PT 1P ASSIST TO THE BATHROOM. TOLERATED WELL. PT SITTING UP IN CHAIR. CALL LIGHT IN REACH.
--- NOTE | 2020-05-26 09:15 | NUR ---
Received message she will be here a 1 pm to evaluate if pt can return. Called and spoke with Summer and updated he will be discharged today per Dr. Tillman. She is stating they may not be able to take him due to his issues with alcohol. Reminded, they would need to take him back and give a 30 day notice as we are unable to hold patients.
--- NOTE | 2020-05-26 09:21 | NUR ---
PT 1P/FWW TO THE BATHROOM. PT ATE 100% OF BREAKFAST. PT DENIES PAIN. REFUSED NICOTINE PATCH. PT IS ALERT AND ORIENTED X3. ASSESSMENT COMPLETE. FINE CRACKLES BILATERAL LOWER LOBES. NO EDEMA NOTED. SCHEDULED MEDS GIVEN. CALL LIGHT IN REACH.
--- NOTE | 2020-05-26 09:59 | NUR ---
PHYSICAL THERAPY WORKING WITH PATIENT AT THIS TIME.
--- NOTE | 2020-05-26 10:36 | NUR ---
PATIENT IS LAYING IN BED WATCHING TV. FRESH WATER OFFERED. VITALS AND I&OS ARE DONE AND DOCUMENTED. CALL LIGHT IS IN REACH. BED ALARM IS ON. NO FURTHER NEEDS AT THIS TIME.
--- NOTE | 2020-05-26 11:35 | NUR ---
PT LYING IN BED. EYES CLOSED. RR WNL WITH UNLABORED BREATHING. CALL LIGHT IN REACH.
--- NOTE | 2020-05-26 12:08 | NUR ---
Received message from Summer asking if this pt could go to a SNF and informed he does not have skilled need. Pt is able to walk without issues. Updated pt has not had any behavior issues in 48 hours. I have also called [facility] after I discussed with him today and he is will to cont. counseling with them. She will be here at 1 pm to evaluate.
[2020-05-26] MEDS ORDERED: NICOTINE PATCH1 EACH TD (12:38)
[2020-05-26] MEDS ORDERED: ZYPREXA7.5 MG PO (12:40)
--- NOTE | 2020-05-26 13:30 | NUR ---
[facility] evaluated pt and they plan on return this afternoon. She states she has to update their service plan and have daughter sign before pt can return. New plan will include no alcohol consumption or pt will be discharged.
--- NOTE | 2020-05-26 14:01 | NUR ---
PATIENT IS SITTING UP IN HIS BED. FRESH WATER GIVEN. VITALS AND I&OS ARE DONE AND DOCUMENTED. CALL LIGHT IS IN REACH. NO FURTHER NEEDS AT THIS TIME.
--- NOTE | 2020-05-26 15:26 | NUR ---
Spoke with Summer and pt may return at any time now. Updated will send by taxi. Avelar at nurses station updated.
--- NOTE | 2020-05-26 15:30 | NUR ---
REPLACED 3 ALLEVYNS ON BILATERAL ARMS. SMALL SKIN TEAR NOTED ON LEFT ARM, NO DRAINAGE NOTED. 2 ALLEVYNS ON RIGHT ELBOW, SCAB ON SKIN AND HEALING. PT DENIES PAIN.
--- NOTE | 2020-05-26 15:30 | NUR ---
DISHCARGE INSTRUCTIONS PROVIDED TO PATIENT AND . DISCUSSED S/SX OF WORSENING CONDITION INCLUDING WHEN TO CALL 911. MEDICATIONS DISCUSSED BY PHARMACY. SIDE EFFECTS ALSO DISCUSSED. PT AND UNDERSTAND. ALL QUESTIONS ANSWERED. DISCUSSED NO FOLLOW UP WITH DR GARCIA NEEDED. CARD GIVEN FOR FOLLOW UP WITH DR RODNEY. DISCUSSED USE OF SLING ALL DAY EXCEPT SLEEPING WITH PILLOW TO IMMOBILIZE ARM. DISCUSSED PAIN REGIMEN. DR GARCIA TALK TO PT AND EXTENSIVILY ABOUT ALCOHOL USE AND PROGRESSION OF DAMAGE TO LIVER. PT AND VERIFIED UNDERSTANDING. NO FUTHER QUESTIONS. VS TAKEN AND STABLE. IV DC'D AND CATH INTACT.
--- NOTE | 2020-05-26 15:30 | NUR ---
SHIFT REPORT GIVEN TO [facility] NURSE BY TELEPHONE.
--- NOTE | 2020-05-26 18:25 | NUR ---
TRANSFER REPORT GIVEN TO [facility] CARE STAFF.
== END 2020-05-26 15:55 | disposition home or self-care (01) | DRG 683 ==
LOC: ED 15:57 → MS 19:20 → CCU 05-21 18:45 → MS 05-23 12:06
PROVIDERS: ADMIT Internal Medicine; ATTEND Internal Medicine
DX: N17.9 Acute kidney failure, unspecified (principal); N39.0 Urinary tract infection, site not specified; F10.231 Alcohol dependence with withdrawal delirium; F03.91 Unspecified dementia, unspecified severity, with behavioral disturbance; Z20.822 Contact with and (suspected) exposure to COVID-19; I10 Essential (primary) hypertension; I48.0 Paroxysmal atrial fibrillation; K21.9 Gastro-esophageal reflux disease without esophagitis; E79.0 Hyperuricemia without signs of inflammatory arthritis and tophaceous disease; E78.5 Hyperlipidemia, unspecified; F32.9 Major depressive disorder, single episode, unspecified; R45.1 Restlessness and agitation; S70.01XA Contusion of right hip, initial encounter; W19.XXXA Unspecified fall, initial encounter; Z87.891 Personal history of nicotine dependence; Z79.899 Other long term (current) drug therapy; Z79.01 Long term (current) use of anticoagulants; Z79.818 Long term (current) use of other agents affecting estrogen receptors and estrogen levels
CPT/HCPCS: 36415; 70450; 71045; 73502; 80048; 80053; 81001; 83735; 84484; 85025; 87088; 93005; 93010; 96374; 97110; 97116; 97162; 97166; 97530; 97535; 99285-25; 99406; C9803; J0696; J2060; J7030; U0003

== ENCOUNTER 2020-08-11 12:09 | Emergency (ER) | payer MEDICARE, BC ==
[~2020-08-11] VITALS: Ht 177.8 cm; Wt 64.9 kg
[~2020-08-11 12:09] MED LIST changes: +ALOE VERA TOP; +FOLIC ACID0.4 MG PO; +LIDODERM1 EACH TOP; +LOPERAMIDE2 M1 PO; +MEGESTROL400 MG/10 PO; +MILK OF MA400 MG/5 M PO; +NICOTINE PATCH1 EACH TD; +PRILOSEC OTC20 MG PO; +TYLENOL325 MG PO; +VITAMIN B-1100 M1 PO; +VITAMIN B-121000 MCG PO; +ZYPREXA7.5 MG PO
== END 2020-08-11 14:34 | disposition home or self-care (01) ==
LOC: ED 12:09
DX: S40.011A Contusion of right shoulder, initial encounter (principal); S80.02XA Contusion of left knee, initial encounter; S80.01XA Contusion of right knee, initial encounter; W01.10XA Fall on same level from slipping, tripping and stumbling with subsequent striking against unspecified object, initial encounter; I10 Essential (primary) hypertension; E11.9 Type 2 diabetes mellitus without complications; I48.91 Unspecified atrial fibrillation; E78.5 Hyperlipidemia, unspecified; M10.9 Gout, unspecified; Z87.891 Personal history of nicotine dependence; Z79.899 Other long term (current) drug therapy
CPT/HCPCS: 73030; 73560; 99283-25

== ENCOUNTER 2020-08-29 11:49 | Emergency (ER) | payer MEDICARE, BC ==
[~2020-08-29] VITALS: Ht 177.8 cm; Wt 64.9 kg
--- OUTSIDE RECORDS SUMMARY | 2020-08-29 11:56 | XMS ---
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 Philip VISIT COUNT (12 MO.) 4 [facility] TOTAL 4 NOTE: Visits indicate total known visits. ED/C VISIT TRACKING (12 MO.) 08/29/2020 11:50 [facility] TYPE: Emergency COMPLAINT: - ALTERED 08/11/2020 12:10 [facility] TYPE: Emergency COMPLAINT: - GLF DIAGNOSES: - Hyperlipidemia, unspecified - Contusion of right shoulder, initial encounter - Unspecified atrial fibrillation - Gout, unspecified - Essential (primary) hypertension - Type 2 diabetes mellitus without complications - Fall on same level from slipping, tripping and stumbling with subsequent striking against unspecified object, initial encounter - Contusion of left knee, initial encounter - Other skilled nursing (current) drug therapy - Contusion of right knee, initial encounter - Personal history of nicotine dependence 05/20/2020 15:57 [facility] TYPE: Emergency COMPLAINT: - MULTIPLE COMPLAINTS 02/09/2020 16:46 [facility] TYPE: Emergency COMPLAINT: - LOW BLOOD PRESSURE DIAGNOSES: - Pain in left knee - Essential (primary) hypertension - Nicotine dependence, unspecified, uncomplicated - Hypotension, unspecified - Abnormal weight loss - Pain in left knee - Type 2 diabetes mellitus without complications - Unspecified atrial fibrillation - Other skilled nursing (current) drug therapy - Hypotension, unspecified INPATIENT VISIT TRACKING (12 MO.) 05/20/2020 19:20 [facility] TYPE: Medical Surgical COMPLAINT: - ACUTE KIDNEY INJURY,UTI DIAGNOSES: - intermodal customer service (current) use of anticoagulants - Other predatory animal exterminator (current) drug therapy - Hyperlipidemia, unspecified - Hyperuricemia without signs of inflammatory arthritis and tophaceous disease - Urinary tract infection, site not specified - Paroxysmal atrial fibrillation - Personal history of nicotine dependence - Restlessness and agitation - Essential (primary) hypertension - Gastro-esophageal reflux disease without esophagitis - Alcohol dependence with withdrawal delirium - Unspecified fall, initial encounter - Unspecified dementia with behavioral disturbance - Acute kidney failure, unspecified - Major depressive disorder, single episode, unspecified - Contusion of right hip, initial encounter - nursing home (current) use of other agents affecting estrogen receptors and estrogen levels [email or web address]
[2020-08-29] MEDS ORDERED: CEPHALEXIN500 M1 PO (15:03)
--- NOTE | 2020-08-29 20:35 | EKG ---
[facility] [address] [place], [place] [address] Signed Sinus tachycardia Otherwise normal ECG When compared with ECG of 20-MAY-2020 16:03, No significant change was found Confirmed by ANA PADILLA DO ([id number]) on 08/29/2020 8:35:35 PM Electronically Signed By: ANA PADILLA DO 08/29/202034 PATIENT NAME: SANCHEZREBECCA Electrocardiogram DATE OF : 33 PHYSICIAN: ANA PADILLA DO REPORT #: [id number] REPORT IS CONFIDENTIAL AND NOT TO BE RELEASED WITHOUT AUTHORIZATION
== END 2020-08-29 15:35 | disposition home or self-care (01) ==
LOC: ED 11:49
DX: N17.9 Acute kidney failure, unspecified (principal); N39.0 Urinary tract infection, site not specified; I10 Essential (primary) hypertension; E11.9 Type 2 diabetes mellitus without complications; I48.91 Unspecified atrial fibrillation; E78.5 Hyperlipidemia, unspecified; M10.9 Gout, unspecified; Z87.891 Personal history of nicotine dependence; Z79.899 Other long term (current) drug therapy
CPT/HCPCS: 51701; 70450; 71045; 72170; 80053; 81001; 84484; 85025; 87088; 93005; 93010; 99285-25; J0696; J7121